=== PATIENT | female | born 1945 | race Caucasian/White ===

== ENCOUNTER 2018-04-24 11:02 | Inpatient (IN) ==
[2018-04-24] MEDS ORDERED: DUONEB (A & A) INH ONE (11:09)
[2018-04-24 11:29] LABS: BE 4.5 mmoll (-3.0-3.0); BLOOD TYPE ARTERIAL; HCO3-(ACT) 28.2 mmoll (20.0-26.0); METHB 1.1 % (0.0-1.5); PO2(98.6) 72 mmHg (60-100); SAMPLE BLOOD; SAO2 96.2 % (95.0-100.0); THB 13.6 g/dL (11.5-17.4); pH(98.6) 7.32 (7.35-7.45)
[2018-04-24 11:34] LABS: ALLEN TEST YES; MODALITY CANNULA
[2018-04-24 11:36] LABS: PCO2(98.6) 63 mmHg (35-45)
[2018-04-24 11:37] LABS: O2HB 88.8 % (95.0-99.0)
[2018-04-24 12:07] LABS: BASO# 0.03 X1000 (0.0-0.2); BASO% 0.3 % (0.0-0.8); EOS# 0.01 X1000 (0.0-0.7); EOS% 0.1 % (0.0-10.0); HEMATOCRIT 42.7 % (37.0-47.0); HEMOGLOBIN 12.7 g/dL (12.0-16.0); IMM GRAN# 0.04 X1000 (0.0-0.04); IMM GRAN% 0.4 % (0.0-0.5); LYMPH# 0.39 X1000 (1.2-3.4); LYMPH% 3.4 % (20.5-51.1); MCH 26.5 PG (27-31); MCHC 29.7 g/dL (33-37); MONO# 0.28 X1000 (0.11-0.59); MONO% 2.5 % (1.7-9.3); MPV 13.1 FL (7.4-10.4); NEUT# 10.65 X1000 (1.4-6.5); NEUT% 93.3 % (42.2-75.2); PLT 190 X1000 (130-400); RDW 16.2 % (11.5-14.5)
[2018-04-24 12:09] LABS: AGAP 10; ALBUMIN 3.7 g/dL (3.5-5.0); ALKALINE PHOSPHATASE 105 U/L (32-104); BUN 11 mg/dL (8-22); CHLORIDE 98 mmol/L (98-107); COSMO 280; CREATININE 0.8 mg/dL (0.5-0.9); ESTIMATED GFR > 60; GLUCOSE 148 mg/dL (70-104); GOT 13 U/L (10-30); GPT 13 U/L (10-36); POTASSIUM 3.9 mmol/L (3.5-5.1); SODIUM 139 mmol/L (136-145); TCO2 31 mmol/L (25-35); TOTAL PROTEIN 7.1 g/dL (6.3-8.3)
--- NOTE | 2018-04-24 12:13 | Diag Imaging Result Doc PS360 ---
EXAM: CHEST-2 VIEWS HISTORY: cough TECHNIQUE: Chest two views 04/08/2014 COMPARISON: None. FINDINGS: The lungs are well expanded. The heart is not enlarged. The vessels are not distended. There are mild increased interstitial markings in the lower right lung no pleural effusions. IMPRESSION: Small right infiltrate which appears to the lateral segment of the right middle lobe. Electronically signed by Pk Bear 04/24/2018 12:10 PM
[2018-04-24 12:20] LABS: LYMPHS 3 % (21-51); MONO 3 % (1-9); SEGS 94 % (42-75)
[2018-04-24] MEDS ORDERED: ROCEPHIN 1 GM in NS 50 ML IV ONE (13:02)
--- NOTE | 2018-04-24 13:23 | EKG Report ---
Test Performed on : 04/24/2018 11:09:57 AM Test Reason : shortness of breath Blood Pressure : / mmHG Vent. Rate : 099 BPM Atrial Rate : 099 BPM P-R Int : 176 ms QRS Dur : 102 ms QT Int : 350 ms P-R-T Axes : 078 076 026 degrees QTc Int : 449 ms Sinus rhythm. with premature supraventricular complexes. Nonspecific ST abnormality Abnormal ECG When compared with ECG of 06-NOV-2011 19:35, premature supraventricular complexes. are now present Nonspecific T wave abnormality, improved in Anterolateral leads Unconfirmed Result
--- NOTE | 2018-04-24 13:29 | PROVIDER DOCUMENTATION ---
This chart was entered by Kiersten Diaz Scribe, acting as scribe for Ralph Myers MD. HPI-Respiratory General - General Chief Complaint: Shortness of Breath Stated Complaint: COPD Time Seen by Provider: 04/24/18 11:07 Source: patient, EMS (first response) Allergies/Adverse Reactions: Patient Allergies Allergy/AdvReac Type Severity Reaction Status Date / Time codeine Allergy RASH Verified 04/24/18 11:08 Home Medications: Home Medication List Medication Instructions Recorded Confirmed Last Taken Type Albuterol [Albuterol Neb] 2.5 mg INH Q4H PRN PRN 06/06/13 09/07/17 Unknown History Atorvastatin Calcium [Lipitor] 20 mg PO DAILY 06/06/13 09/07/17 04/07/14 History Haloperidol [Haldol] 10 mg PO DAILY 06/06/13 09/07/17 04/07/14 History Lorazepam [Ativan] 1 mg PO DAILY #14 tablet 05/22/15 09/07/17 Unknown Rx Quetiapine Fumarate [Seroquel] 25 mg PO BID #28 tablet 05/22/15 09/07/17 Unknown Rx Fluticasone/Salmeterol [Advair 1 puff INH PRN PRN 07/23/15 09/07/17 Unknown History 250-50 Diskus] Ibuprofen [Motrin] 800 mg PO Q8H PRN PRN #20 tablet 07/23/15 09/07/17 Unknown Rx Omeprazole [Prilosec] 20 mg PO DAILY@0700 #20 capsule 07/23/15 Unknown Rx Naproxen [EC-Naprosyn] 500 mg PO Q12H PRN PRN #20 10/03/15 Unknown Rx tablet.dr - History of Present Illness-Resp Nature of Presenting Problem: 73 yowf presents to the ed with c/o sob, productive cough with white sputum and still smoking. per ems when aos pt was 80% on RA Quality of Pain: reports: fullness Severity in ED: reports: moderate Onset/Duration: reports: 24 hours ago Timing: reports: still present Context: reports: recent URI Cough Quality/Degree: reports: productive cough, sputum (white and thick in color) Episode Frequency: chronic episodes Current Respiratory Medication Therapy: Initiated see nurses note Modifying Factors: improves with: oxygen, sitting upright. worse with: exertion , coughing, lying down Associated Symptoms: reports: cough, hurts to breathe, shortness of breath Similar Symptoms Previously?: Yes Recently seen or treated by another doctor?: No Review of Systems - Adult - REVIEW OF SYSTEMS - ADULT ROS:: limited per condition Constitutional: denies: chills, fever Eyes: reports: no symptoms reported Ears, Nose, Mouth & Throat: reports: no symptoms reported Cardiovascular: denies: chest pain, syncope Respiratory: reports: see HPI, chronic cough, dyspnea on exertion, excessive sputum production, shortness of breath Gastrointestinal: denies: abdominal pain, diarrhea, nausea, vomiting Genitourinary: reports: no symptoms reported Musculoskeletal: reports: no symptoms reported Integumentary: reports: no symptoms reported Neurological: denies: dizziness/vertigo, headache/migraines Psychiatric: reports: no symptoms reported Endocrine: reports: no symptoms reported Hematologic/Lymphatic: reports: no symptoms reported Allergic/Immunologic: reports: no symptoms reported All Other Systems: Reviewed and Negative Past History - Adult - PAST MEDICAL HISTORY-ADULT Review of Records: reports: Old Records Reviewed, Nursing Assessment Review, Medications Reviewed, Social history reviewed & non-contributory. Major Childhood Illnesses: reports: denies history Cardiovascular: reports: hyperlipidemia Respiratory: reports: asthma, COPD, sleep apnea Gastrointestinal: reports: denies history Obstetrical/Gynecological: reports: denies history Genitourinary: reports: denies history Musculoskeletal: reports: denies history Neurological: reports: CVA Psychiatric: reports: bipolar Endocrine/Immune: reports: denies history Other Conditions: reports: cataract/glaucoma - PRIOR SURGERIES/PROCEDURES Surgical/Procedure History: reports: reviewed, not pertinent - IMMUNIZATION STATUS Childhood Immunizations: See Nurse Assessment Flu Vaccine: See Nurse Assessment - FAMILY HISTORY Family History: reviewed, not pertinent - SOCIAL HISTORY Smoking: cigarettes, greater than 1 pack/day Provider spent 3-5 mins advising pt. on dangers of tobacco.: Discussed manners to quit use, and f/u contacts for add'l counseling. Substance Use: denies Alcohol Use Frequency: never Living Situation: family Physical Exam-General - PHYSICAL EXAM-ADULT Initial Vital Signs Reviewed: Yes (100.1 RR 35 tachy 110) - CONSTITUTIONAL General Appearance: alert, mild distress, obese, anxious - EYES Eyes: PERRL/EOMI, pale conjunctivae - HEAD, EARS, NOSE, MOUTH & THROAT HENMT: dental decay. negative: moist mucous membranes - NECK Neck: full range of motion, normal inspection - RESPIRATORY Respiratory: chest non-tender, respiratory distress, decreased breath sounds, accessory muscle use, wheezing, increased rate (35) - CARDIOVASCULAR Cardiovascular: normal peripheral pulses, tachycardia (110) - GASTROINTESTINAL (ABDOMEN) Abdominal Exam: normal bowel sounds, non tender, soft - LYMPHATIC Lymphatic: no adenopathy - MUSCULOSKELETAL Back Exam: normal inspection, no CVA tenderness, no vertebral tenderness Extremity: normal range of motion, non-tender, normal inspection, no pedal edema , no calf tenderness - SKIN Integumentary: normal turgor, warm/dry, pallor - NEUROLOGIC Neurologic: grossly normal, no motor/sensory deficits - PSYCHIATRIC Psych/Mental Status: normal mood/affect, normal thought content, normal thought process, oriented x 3, anxious Progress - PLAN OF CARE/RESULTS Progress/Plan/Lab Results: Vital Signs - 8 hr 04/24/18 11:04 04/24/18 11:16 04/24/18 11:29 Temperature 100.1 F H Pulse Rate 110 H 88 Respiratory Rate 20 35 H Blood Pressure 128/96 O2 Sat by Pulse Oximetry 97 04/24/18 11:30 04/24/18 11:46 04/24/18 11:54 Temperature Pulse Rate 88 80 84 Respiratory Rate 24 39 H Blood Pressure 132/55 132/55 O2 Sat by Pulse Oximetry 92 L 97 96 04/24/18 12:44 Temperature Pulse Rate 89 Respiratory Rate 39 H Blood Pressure 126/58 O2 Sat by Pulse Oximetry 95 04/24/18 11:10 - Final Sputum Laboratory Results - last 24 hr 04/24/18 04/24/18 04/24/18 11:19 11:20 11:20 WBC 11.40 H RBC 4.80 Hgb 12.7 Hct 42.7 MCV 89.0 MCH 26.5 L MCHC 29.7 L RDW Std Deviation 16.2 H Plt Count 190 MPV 13.1 H Immature Gran % (Auto) 0.4 Neut % (Auto) 93.3 H Lymph % (Auto) 3.4 L Josephine % (Auto) 2.5 Eos % (Auto) 0.1 Baso % (Auto) 0.3 Immature Gran # (Auto) 0.04 Neut # (Auto) 10.65 H Lymph # (Auto) 0.39 L Josephine # (Auto) 0.28 Eos # (Auto) 0.01 Baso # (Auto) 0.03 Segmented Neutrophils 94 H Lymphocytes 3 L Monocytes 3 Specimen Type ARTERIAL Sample Site R RADIAL pH 7.32 L pCO2 63 H* pO2 72 HCO3 28.2 H Base Excess 4.5 H Oxyhemoglobin 88.8 L* ABG O2 Sat (Calculated) 17.0 ABG O2 Saturation 96.2 ABG Carboxyhemoglobin 6.60 H* ABG Methemoglobin 1.1 Km Test YES A-a O2 Difference 77.0 Total Hemoglobin 13.6 Lactate 0.90 Liter Flow 3.0 Blood Gas Modality CANNULA FiO2 % 32.0 Sodium 139 Potassium 3.9 Chloride 98 Carbon Dioxide 31 Anion Gap 10 BUN 11 Creatinine 0.8 Estimated GFR/1.73 m2 > 60 BUN/Creatinine Ratio 14 Glucose 148 H Calculated Osmolality 280 Calcium 9.0 Total Bilirubin 0.40 AST 13 ALT 13 Alkaline Phosphatase 105 H Creatine Kinase Troponin T Total Protein 7.1 Albumin 3.7 Globulin 3.0 Albumin/Globulin Ratio 1.0 Plasma Lactate 04/24/18 04/24/18 04/24/18 11:20 11:20 11:20 WBC RBC Hgb Hct MCV MCH MCHC RDW Std Deviation Plt Count MPV Immature Gran % (Auto) Neut % (Auto) Lymph % (Auto) Josephine % (Auto) Eos % (Auto) Baso % (Auto) Immature Gran # (Auto) Neut # (Auto) Lymph # (Auto) Josephine # (Auto) Eos # (Auto) Baso # (Auto) Segmented Neutrophils Lymphocytes Monocytes Specimen Type Sample Site pH pCO2 pO2 HCO3 Base Excess Oxyhemoglobin ABG O2 Sat (Calculated) ABG O2 Saturation ABG Carboxyhemoglobin ABG Methemoglobin Km Test A-a O2 Difference Total Hemoglobin Lactate Liter Flow Blood Gas Modality FiO2 % Sodium Potassium Chloride Carbon Dioxide Anion Gap BUN Creatinine Estimated GFR/1.73 m2 BUN/Creatinine Ratio Glucose Calculated Osmolality Calcium Total Bilirubin AST ALT Alkaline Phosphatase Creatine Kinase 107 Troponin T < 0.010 Total Protein Albumin Globulin Albumin/Globulin Ratio Plasma Lactate 1.2 Orders Category Date Time Status Saline Loc NOW Care 04/24/18 11:10 Active CHEST-2 VIEWS [RAD] Stat Exams 04/24/18 11:10 Completed ABG [RESP] Routine Lab 04/24/18 11:19 Completed BLOOD CULTURE [BLDCUL] Stat Lab 04/24/18 11:10 Ordered CBC WITH DIFF [HEME] Stat Lab 04/24/18 11:20 Completed CK PROFILE [SP CHEM] Stat Lab 04/24/18 11:20 Completed COMPREHENSIVE METABOLIC PANEL [CHEM] Stat Lab 04/24/18 11:20 Completed LACTATE, PLASMA [CHEM] Stat Lab 04/24/18 11:20 Completed SPUTUM CULTURE WITH GRAM STAIN [RM] Routine Lab 04/24/18 11:10 Results TROPONIN T Stat Lab 04/24/18 11:20 Completed Albuterol 2.5MG/Ipratrop 0.5MG [Duoneb (A & A)] Med 04/24/18 11:09 Discontinued 3 ml INH NOW ONE CefTRIAXONE [Rocephin] 1 gm Med 04/24/18 13:02 Active 0.9% Sodium Chloride Inj [Ns] 50 ml IV NOW Aerosol Treatments Routine Oth 04/24/18 11:10 Completed Aerosol Treatments Stat Oth 04/24/18 11:10 Completed Pulse Oximetry Stat Oth 04/24/18 11:10 Active EKG [EKG] Stat Ther 04/24/18 12:01 Draft Result Diagrams: 04/24/18 11:20 04/24/18 11:20 - REASSESSMENT Reassessment #1 Time Reassessed: 11:43 (pt imoproving with neb tx) Status: improving Reassessment Comment: dr meyrs at bedside Reassessment #2 Time Reassessed: 13:23 Status: improving - EKG 1 Time of EKG reading by physician:: 11:09 EKG Read and Signed by:: Ralph Myers EKG Interpretation (*Must complete 3 of following elements*): Abnormal Rate: 99 Rhythm: sr with preamture supraventricular complexes [place]: normal QRS: normal [place] Interval: normal Comments: nonspecfic ST abnormality - XRAY 1 XRAY: Bilateral XRAY Study: Chest Impression: See EMR Report (EXAM: CHEST-2 VIEWS HISTORY: cough TECHNIQUE: Chest two views 04/08/2014 COMPARISON: None. FINDINGS: The lungs are well expanded. The heart is not enlarged. The vessels are not distended. There are mild increased interstitial markings in the lower right lung no pleural effusions. IMPRESSION: Small right infiltrate which appears to the lateral segment of the right middle lobe. Electronically signed by Pk Bear 2018 12:10 PM 04/24/18 1210 Interpreting Physician: Pk Bear MD Dictated Date/Time: 04/24/18 1210 cc: Ralph Myers MD; Kenneth Nuñez) - CONSULTS/PCP/HOSPITALIST Notification #1 *Consult/PCP/Hospitalist*: dr giron hospitalist Time Discussed: 13:23 Consult Disposition: Admit Departure - Departure Date of Disposition Decision: 04/24/18 Time of Disposition Decision: 13:23 DIAGNOSIS: COPD exacerbation, Tobacco use disorder Disposition: ADMITTED INPATIENT 09 Certified Medical Emergency: Emergent Condition: Stable Referrals and Follow-Ups: Kenneth Nuñez [Primary Care Provider] - - Critical Care Note This patient required my direct & personal management of CC.: Yes Total Time (mins): 39 Critical Care Statement: This patient required my direct personal management to treat or rule out processes, the absence of which, could potentiallly result in sudden, clinically significant life or limb threatening deterioration. Attestation - Physician/ PHU Attestation Patient care was provided by Advanced Practice Provider:: No The physician spent face to face time with patient:: Yes Advanced Practice Provider documentation review:: Supervising physician onsite and consulted in the evaluation and care of this patient. The physician did have a face to face encounter with the patient. Sepsis: Tissue Perfusion Assmt - Physical Exam Assessment Date: 04/24/18 Time Assessment Initialized: 11:42 Vital Signs: Last Vital Signs Temp 100.1 F H 04/24/18 11:16 Pulse 89 04/24/18 12:44 Resp 39 H 04/24/18 12:44 BP 126/58 04/24/18 12:44 Pulse Ox 95 04/24/18 12:44 Height 5 ft 6 in Weight 83.915 kg Lung Sounds:: wheezing, diminished Heart Sounds:: Other (tachycardic 110) Capillary Refill Time: Less Than 2 Seconds Skin Exam:: pale - Impression Impression:: Tissue Perfusion Adequate - Plan Plan:: See Orders This chart was documented by the indicated scribe, (Kiersten Diaz Scribe) and accurately reflects the services I performed and decisions made by me, Ralph Myers MD, as attested by the provider's signature.
[2018-04-24] MEDS ORDERED: DUONEB (A & A) INH PRN (15:29)
[2018-04-24] MEDS ORDERED: TYLENOL PO PRN (15:29)
[2018-04-24] MEDS ORDERED: ZOFRAN IV PRN (15:29)
[2018-04-24] MEDS ORDERED: DUONEB (A & A) ONE (15:38)
[2018-04-24] MEDS: DUONEB (A & A) INH SCH ×3 (15:54→23:19)
--- NOTE | 2018-04-24 17:16 | HISTORY AND PHYSICAL ---
PRIMARY CARE PROVIDER: Dr. Kenneth Nuñez. CHIEF COMPLAINT: Shortness of breath. HISTORY OF PRESENT ILLNESS: Ms. Zelaya is a 73-year-old female who carries a past medical history of COPD, chronic tobacco user, CVA, bipolar disorder, hyperlipidemia, who reported to the ED with 1-day history of shortness of breath, productive cough ongoing for 1 month with wheezing, frequent urination but no dysuria, fever of 100. Denies any chest pain, headache, chills, nausea, vomiting, diarrhea. Workup in the ED showed hypercarbia on her ABGs. She was placed on supplemental O2, given a breathing treatment. She does have a slight elevated white count. Temperature was 100.1 degrees upon arrival. She was tachypneic. Lactate was normal. She will be admitted for COPD exacerbation and probable right lower lobe pneumonia. Continue with bronchodilators, supplemental O2, IV steroids, and IV antibiotics. PAST MEDICAL HISTORY: 1. COPD. 2. Tobacco use. 3. CVA. 4. Bipolar. 5. Hyperlipidemia. PAST SURGICAL HISTORY: Breast biopsy. SOCIAL HISTORY: Patient lives in [place]. She lives alone. She is a smoker of 1 to 2 packs per day and has done so since she was 19 years old. FAMILY HISTORY: Father with heart issues. ALLERGIES: Allergy to codeine. MEDICATIONS: Home medications have not been reconciled. REVIEW OF SYSTEMS: A 14 point review of systems completely negative except for those mentioned in HPI. PHYSICAL EXAMINATION: VITAL SIGNS: Temperature is 98.3 degrees, heart rate 91, respirations 26, blood pressure 139/68, O2 is 95% on 2.5 L nasal cannula. This was weaned down from a Ventimask. GENERAL: Ms. Zelaya is a pleasant 73-year-old female who is lying on the stretcher in no acute distress, somewhat short of breath with coughing spell while at bedside. HEENT: Atraumatic, normocephalic. PERRL. Dental caries. CARDIOVASCULAR: S1, S2 appreciated. No murmurs, gallops, or rubs noted. RESPIRATORY: Lung sounds bilateral rhonchi throughout all lung moore. GASTROINTESTINAL: Soft, nontender, nondistended. Positive bowel sounds x4 quadrants. EXTREMITIES: Negative for edema. No signs of clubbing or cyanosis. SKIN: Appears to be warm dry flaky and intact. NEUROLOGIC: No focal deficits noted. The patient answers questions appropriately. DIAGNOSTIC DATA: Chest x-ray shows a small right infiltrate which appears to be the lateral segment of the right lower lobe. EKG shows sinus rhythm at 99 beats per minute. LABORATORY DATA: White count 11, hemoglobin and hematocrit 12 and 42, platelet count is 190,000. ABG: pH 7.32, pCO2 63, pO2 72, bicarb 28.2, base excess 4.5. Oxyhemoglobin was 88.8. Lactate was 0.90 on 3 L nasal cannula. Chemistry: Sodium 139, potassium 3.9, BUN 11, creatinine 0.8, blood glucose is 148. Troponin less than 0.010. ASSESSMENT AND PLAN: 1. Chronic obstructive pulmonary disease exacerbation. We will continue with supplemental O2, IV antibiotics, bronchodilators, IV steroids, supplemental O2, aggressive pulmonary toilet. 2. Questionable right infiltrate. We will continue with IV antibiotics, bronchodilators, supplemental O2, check sputum culture, blood cultures. 3. Acute hypercarbic respiratory failure. Patient reportedly is breathing better with supplemental O2. We will recheck ABG. 4. Chronic obstructive pulmonary disease exacerbation. 5. Cerebrovascular accident history. 6. Bipolar disorder. 7. Hyperlipidemia. Further recommendations to follow further evaluation, laboratory, and diagnostic data. Dictated by GLADIS Borrego for Mauricio Hdz MD cc: Mauricio Hdz MD
[2018-04-24] MEDS: NS 1,000 ML IV SCH (17:19)
[2018-04-24] MEDS: SOLU-MEDROL IV SCH (17:19)
[2018-04-24] MEDS: LIPITOR PO SCH (21:41)
[2018-04-24] MEDS: SEROQUEL PO SCH (21:42)
--- NOTE | 2018-04-24 23:49 | HISTORY AND PHYSICAL ---
ADDENDUM: Patient came in with shortness of breath and cough and she was found to have a white count of 11. She has wheezing on exam. She is somewhat hypercapnic. She does have a significant smoking history. She came in for fever, shortness of breath. Admitted for COPD exacerbation. On pulmonary exam, she does have some end-expiratory wheezes. We will continue treatment and follow closely. PROBLEM: Chronic obstructive pulmonary disease exacerbation. We will continue oxygen, bronchodilators, steroids. We will continue empiric antibiotics and follow closely. DISPOSITION: Pending clinical status. This is a [id number] encounter note with Estella Kothari. cc: Mauricio Hdz MD
[2018-04-25] MEDS: DUONEB (A & A) INH SCH ×7 (03:26→23:26)
[2018-04-25 04:59] LABS: BLOOD TYPE ARTERIAL; HCO3-(ACT) 28.7 mmoll (20.0-26.0); O2(CT) 16.3 mL/dL (15.0-23.0); O2HB 90.6 % (95.0-99.0); PO2(98.6) 65 mmHg (60-100); SAMPLE BLOOD; SAO2 94.6 % (95.0-100.0); THB 12.8 g/dL (11.5-17.4); pH(98.6) 7.24 (7.35-7.45)
[2018-04-25 05:02] LABS: PCO2(98.6) 82 mmHg (35-45)
[2018-04-25 05:03] LABS: ALLEN TEST YES
[2018-04-25 06:08] LABS: MODALITY CANNULA
[2018-04-25] MEDS: PROTONIX PO SCH (06:50)
[2018-04-25] MEDS: SOLU-MEDROL IV SCH ×2 (07:06→17:13)
--- NOTE | 2018-04-25 07:19 | Diag Imaging Result Doc PS360 ---
EXAM: CHEST-PORTABLE 04/25/2018 HISTORY: short of breath TECHNIQUE: AP portable at 0629 COMMENT: Considering differences in inspiration and technique there has been no significant change since 04/24/2018. IMPRESSION: Stable chest. Electronically signed by Ozzy Ramirez 04/25/2018 7:16 AM
[2018-04-25 07:50] LABS: BASO# 0.01 X1000 (0.0-0.2); BASO% 0.1 % (0.0-0.8); HEMATOCRIT 44.5 % (37.0-47.0); HEMOGLOBIN 12.6 g/dL (12.0-16.0); IMM GRAN# 0.03 X1000 (0.0-0.04); IMM GRAN% 0.4 % (0.0-0.5); LYMPH# 0.44 X1000 (1.2-3.4); LYMPH% 6.5 % (20.5-51.1); MCH 25.8 PG (27-31); MCHC 28.3 g/dL (33-37); MCV 91.2 FL (81-99); MONO# 0.29 X1000 (0.11-0.59); MONO% 4.3 % (1.7-9.3); MPV 13.1 FL (7.4-10.4); NEUT# 5.96 X1000 (1.4-6.5); NEUT% 88.7 % (42.2-75.2); PLT 170 X1000 (130-400); RBC 4.88 XMIL (4.2-5.4); RDW 16.3 % (11.5-14.5); WBC 6.73 X1000 (4.8-10.8)
[2018-04-25 08:06] LABS: AGAP 9; BUN 9 mg/dL (8-22); CALCIUM 9.2 mg/dL (8.8-10.2); CHLORIDE 102 mmol/L (98-107); COSMO 287; CREATININE 0.7 mg/dL (0.5-0.9); ESTIMATED GFR > 60; GLUCOSE 122 mg/dL (70-104); POTASSIUM 4.7 mmol/L (3.5-5.1); SODIUM 144 mmol/L (136-145); TCO2 33 mmol/L (25-35)
[2018-04-25] MEDS ORDERED: ATIVAN PO SCH (09:00)
[2018-04-25] MEDS ORDERED: HALDOL PO SCH (09:00)
[2018-04-25 09:28] LABS: LYMPHS 10 % (21-51); MONO 4 % (1-9); SEGS 86 % (42-75)
[2018-04-25] MEDS: LOVENOX SUBQ SCH ×2 (09:59→10:01)
[2018-04-25] MEDS: SEROQUEL PO SCH ×3 (10:02→23:36)
[2018-04-25] MEDS: NS 1,000 ML IV SCH ×2 (10:03→23:35)
[2018-04-25] MEDS ORDERED: VANCOMYCIN IV PER PHARMACY MISC SCH (10:30)
[2018-04-25] MEDS: ROCEPHIN 1 GM in NS 50 ML IV SCH (13:02)
[2018-04-25] MEDS ORDERED: VANCOMYCIN 1,650 MG in NS 250 ML IV ONE (13:15)
[2018-04-25] MEDS ORDERED: KLONOPIN PO PRN (17:34)
[2018-04-25] MEDS: LIPITOR PO SCH (23:35)
[2018-04-25] MEDS: HALDOL PO SCH (23:35)
[2018-04-26 00:49] LABS: BILIRUBIN URINE NEGATIVE (NEGATIVE); GLUCOSE URINE NEGATIVE (NEGATIVE); KETONE URINE NEGATIVE (NEGATIVE)
[2018-04-26 00:50] LABS: BLOOD URINE NEGATIVE (NEGATIVE); CLARITY CLEAR (CLEAR); COLOR YELLOW; LEUKOCYTES URINE TRACE (NEGATIVE); NITRITE URINE NEGATIVE (NEGATIVE); PROTEIN URINE TRACE mg/dL (NEGATIVE); UROBILINOGEN URINE NORMAL
[2018-04-26 00:52] LABS: URINE BACTERIA 4+ /HFP; URINE EPITHELIAL CELLS <10 /HPF (<10); URINE RBC <10 /HPF (<10); URINE WBC <10 /HPF (<10)
[2018-04-26 00:53] LABS: URINE SOURCE CLEAN CATCH
--- NOTE | 2018-04-26 00:59 | PROGRESS NOTE ---
DATE: 04/25/2018 SUBJECTIVE: The patient has no major complaints. She says she just does not feel well. She is breathing heavily, although not wheezing per se, but she is kind of going up and down. She just seems a little bit more labored today, although again, not wheezing. OBJECTIVE DATA: Vital Signs: Blood pressure is 144/60, heart rate of 90, respiratory rate of 20, temperature 98.3 degrees, 93% on 4 L. Cardiovascular: Regular rate and rhythm. Pulmonary: Diminished at the bases. GI: Soft, nontender, nondistended. Bowel sounds were positive. LABORATORY DATA: White count is down to 6, hemoglobin and hematocrit 12 and 44, platelets 170,000. pH 7.24, pCO2 82, PaO2 65. Basic was normal. Chest x-ray today looked similar. PROBLEM LIST: 1. Acute chronic obstructive pulmonary disease exacerbation. We will continue breathing treatments. I am going to knock down her steroids. I am concerned that may be causing some of her agitation. We may give her a little bit of p.r.n. medications to help with her symptoms. 2. Possible right lower lobe pneumonia. We will continue antibiotics. She is currently on Rocephin and azithromycin. She had one positive blood culture, so we initiated vancomycin. 3. Disposition is pending her clinical status. We will see how she does. 4. Hypercapnic respiratory failure. I think she may benefit from BiPAP. We will try to institute that this evening, and see how she follows. cc: Mauricio Hdz MD
[2018-04-26] MEDS: DUONEB (A & A) INH SCH ×6 (03:40→22:45)
[2018-04-26] MEDS: SOLU-MEDROL IV SCH ×2 (06:35→17:12)
[2018-04-26] MEDS: PROTONIX PO SCH (06:36)
[2018-04-26 07:30] LABS: AGAP 5; BUN 13 mg/dL (8-22); CALCIUM 8.6 mg/dL (8.8-10.2); CHLORIDE 104 mmol/L (98-107); COSMO 284; CREATININE 0.5 mg/dL (0.5-0.9); ESTIMATED GFR > 60; GLUCOSE 109 mg/dL (70-104); POTASSIUM 4.5 mmol/L (3.5-5.1); SODIUM 142 mmol/L (136-145); TCO2 33 mmol/L (25-35)
[2018-04-26 07:40] LABS: BASO# 0.01 X1000 (0.0-0.2); BASO% 0.2 % (0.0-0.8); HEMATOCRIT 37.6 % (37.0-47.0); HEMOGLOBIN 10.5 g/dL (12.0-16.0); IMM GRAN# 0.01 X1000 (0.0-0.04); IMM GRAN% 0.2 % (0.0-0.5); LYMPH# 0.51 X1000 (1.2-3.4); LYMPH% 9.5 % (20.5-51.1); MCH 25.6 PG (27-31); MCHC 27.9 g/dL (33-37); MCV 91.7 FL (81-99); MONO# 0.17 X1000 (0.11-0.59); MONO% 3.2 % (1.7-9.3); MPV 13.1 FL (7.4-10.4); NEUT# 4.65 X1000 (1.4-6.5); NEUT% 86.9 % (42.2-75.2); PLT 146 X1000 (130-400); RDW 15.9 % (11.5-14.5); WBC 5.35 X1000 (4.8-10.8)
[2018-04-26 08:11] LABS: LYMPHS 10 % (21-51); OVALOCYTES OCCASIONAL; POIKILOCYTOSIS OCCASIONAL; SEGS 90 % (42-75)
[2018-04-26] MEDS: LOVENOX SUBQ SCH (10:07)
[2018-04-26] MEDS: SEROQUEL PO SCH ×3 (10:07→20:47)
[2018-04-26] MEDS ORDERED: TEARISOL OPH SOLUTION BOTH EYES PRN (11:48)
[2018-04-26] MEDS: NICODERM PATCH TD SCH (13:17)
[2018-04-26] MEDS: ROCEPHIN 1 GM in NS 50 ML IV SCH (13:17)
[2018-04-26 18:05] LABS: BE 11.9 mmoll (-3.0-3.0); BLOOD TYPE ARTERIAL; HCO3-(ACT) 34.1 mmoll (20.0-26.0); METHB 0.9 % (0.0-1.5); O2(CT) 15.4 mL/dL (15.0-23.0); O2HB 92.7 % (95.0-99.0); PO2(98.6) 59 mmHg (60-100); SAMPLE BLOOD; SAO2 95.2 % (95.0-100.0); THB 11.8 g/dL (11.5-17.4); pH(98.6) 7.38 (7.35-7.45)
[2018-04-26 18:14] LABS: ALLEN TEST NO; MODALITY CANNULA; PCO2(98.6) 67 mmHg (35-45)
--- NOTE | 2018-04-26 18:18 | PROGRESS NOTE ---
DATE: 04/26/2018 SUBJECTIVE: Patient has no focal complaints. OBJECTIVE: Blood pressure is 101/60, heart rate of 90, respiratory rate of 24, temperature 98.6 degrees, 98% on 4 L.Cardiovascular: Regular rate and rhythm. Pulmonary: Bilateral breath sounds but she has more wheezing today than she did yesterday. Her lungs sounded pretty clear yesterday and they do not now. She definitely has end-expiratory wheezes. GI: Soft, nontender, nondistended. Bowel sounds were positive. LABORATORY DATA: White count 5, hemoglobin and hematocrit 10 and 37, platelets 146,000. Basic was normal. PROBLEM LIST: 1. Acute chronic obstructive pulmonary disease exacerbation. Will continue breathing treatments. I am going to go up on her steroids, I weaned them down yesterday, she was doing a bit better and was worried it was affecting her mental status underlying psychiatric issues but I may have weaned them a bit too soon because I think she needs more treatment. 2. Right lower lobe pneumonia, she is on antibiotics Rocephin, azithromycin, the coag-negative staph 1/2 is likely contaminant. I will stop vancomycin. 3. Hypercapnic respiratory failure. I am waiting on her repeat gas. We will continue BiPAP which she has done okay. DISPOSITION: Maybe home in 1 to 2 days. She is very eager to go home but I do not think she is stable enough for that at this time. cc: Mauricio Hdz MD
[2018-04-26] MEDS ORDERED: VANCOMYCIN 1,300 MG in NS 250 ML IV SCH (19:30)
[2018-04-26] MEDS: HALDOL PO SCH (20:47)
[2018-04-26] MEDS: LIPITOR PO SCH (20:47)
[2018-04-27] MEDS ORDERED: SOLU-MEDROL IV SCH (01:00)
[2018-04-27] MEDS: DUONEB (A & A) INH SCH ×6 (03:15→22:59)
[2018-04-27] MEDS: PROTONIX PO SCH ×2 (05:35→06:38)
[2018-04-27 07:25] LABS: HEMATOCRIT 38.9 % (37.0-47.0); IMM GRAN# 0.01 X1000 (0.0-0.04); IMM GRAN% 0.2 % (0.0-0.5); LYMPH# 0.26 X1000 (1.2-3.4); MCH 25.9 PG (27-31); MCHC 28.3 g/dL (33-37); MCV 91.7 FL (81-99); MONO# 0.07 X1000 (0.11-0.59); MONO% 1.3 % (1.7-9.3); MPV 13.3 FL (7.4-10.4); NEUT# 4.89 X1000 (1.4-6.5); NEUT% 93.5 % (42.2-75.2); PLT 145 X1000 (130-400); RBC 4.24 XMIL (4.2-5.4); RDW 15.7 % (11.5-14.5); WBC 5.23 X1000 (4.8-10.8)
[2018-04-27 07:34] LABS: AGAP 7; BUN 16 mg/dL (8-22); CALCIUM 9.2 mg/dL (8.8-10.2); CHLORIDE 102 mmol/L (98-107); COSMO 293; CREATININE 0.6 mg/dL (0.5-0.9); ESTIMATED GFR > 60; GLUCOSE 162 mg/dL (70-104); POTASSIUM 4.7 mmol/L (3.5-5.1); SODIUM 145 mmol/L (136-145); TCO2 36 mmol/L (25-35)
[2018-04-27] MEDS: SOLU-MEDROL IV SCH ×2 (09:11→16:30)
[2018-04-27] MEDS: SEROQUEL PO SCH ×3 (09:11→20:28)
[2018-04-27] MEDS: LOVENOX SUBQ SCH ×2 (09:11→09:13)
[2018-04-27] MEDS: NICODERM PATCH TD SCH (09:12)
[2018-04-27 10:20] LABS: LYMPHS 6 % (21-51); SEGS 94 % (42-75)
[2018-04-27] MEDS: ROCEPHIN 1 GM in NS 50 ML IV SCH (12:56)
[2018-04-27] MEDS: HALDOL PO SCH (20:28)
[2018-04-27] MEDS: LIPITOR PO SCH (20:28)
--- NOTE | 2018-04-27 23:08 | PROGRESS NOTE ---
DATE: 04/27/2018 SUBJECTIVE: Patient notes that she is feeling better she was to go home. Denies any complaints states her breathing is better. PHYSICAL: Temperature 98.1 , pulse 71, respiratory 18, BP .General: Patient is awake, alert, she is in minimal respiratory distress actually much improved from previous day 's exams. HEENT: Normocephalic. Neck: Supple. CV: Regular rate. Chest: Minimal wheezing, good air movement bilaterally. Abdomen: Soft nondistended. Extremities: Moves all extremities. ASSESSMENT: 1. Chronic obstructive pulmonary disease exacerbation continue to improve. We will decrease her Solu-Medrol at this point hopefully home over the next 2 or 3 days. 2. Right lower lobe pneumonia continues to improve, will continue Rocephin and azithromycin. 3. Hypercapnic respiratory failure also improved. cc: Kd Pena MD MTDD
[2018-04-28] MEDS: SOLU-MEDROL IV SCH ×3 (00:29→18:56)
[2018-04-28] MEDS: DUONEB (A & A) INH SCH ×6 (03:31→23:10)
[2018-04-28] MEDS: PROTONIX PO SCH ×2 (05:49→06:13)
[2018-04-28 06:06] LABS: HEMATOCRIT 40.4 % (37.0-47.0); HEMOGLOBIN 11.5 g/dL (12.0-16.0); MCH 25.8 PG (27-31); MCHC 28.5 g/dL (33-37); MCV 90.8 FL (81-99); MPV 13.1 FL (7.4-10.4); RBC 4.45 XMIL (4.2-5.4); RDW 15.6 % (11.5-14.5); WBC 5.94 X1000 (4.8-10.8)
[2018-04-28 06:19] LABS: AGAP 4; BUN 19 mg/dL (8-22); CALCIUM 9.3 mg/dL (8.8-10.2); CHLORIDE 99 mmol/L (98-107); COSMO 285; CREATININE 0.6 mg/dL (0.5-0.9); ESTIMATED GFR > 60; GLUCOSE 128 mg/dL (70-104); POTASSIUM 4.5 mmol/L (3.5-5.1); SODIUM 141 mmol/L (136-145); TCO2 38 mmol/L (25-35)
[2018-04-28] MEDS: SEROQUEL PO SCH ×3 (11:14→23:05)
[2018-04-28] MEDS: LOVENOX SUBQ SCH ×2 (11:14→11:22)
[2018-04-28] MEDS: NICODERM PATCH TD SCH (11:14)
[2018-04-28] MEDS: ROCEPHIN 1 GM in NS 50 ML IV SCH (14:11)
[2018-04-28] MEDS: ATIVAN PO PRN (14:12)
--- NOTE | 2018-04-28 22:55 | PROGRESS NOTE ---
DATE: 04/28/2018 SUBJECTIVE: The patient notes that she is breathing much easier. Much less cough and congestion. Much less shortness of breath. She is asking to go home. PHYSICAL EXAMINATION: Temperature 97.1, pulse 66, respiratory 18, BP 115/86. General: The patient is awake, alert, currently in no distress. HEENT: Normocephalic. Neck: Supple. CARDIOVASCULAR: Regular rate. Chest: Clear, nonlabored. No wheezing. No crackles. Abdomen: Soft, nondistended, obese. Extremities: Moves all extremities. Neurologic: No changes. ASSESSMENT: 1. Chronic obstructive pulmonary disease with acute on chronic exacerbation. 2. Right lower lobe pneumonia. 3. Hypercapnic respiratory failure. PLAN: We had discussed with patient earlier today decreasing her steroids to twice daily and discharging her home. However, her son notes that she is now allowed to come back home until her prescriptions from Psychiatry have been re-updated. We will attempt to contact Psychiatry and follow. cc: Kd Pena MD
[2018-04-28] MEDS: HALDOL PO SCH (23:03)
[2018-04-28] MEDS: LIPITOR PO SCH (23:03)
[2018-04-29] MEDS: ATIVAN PO PRN ×2 (00:56→14:35)
[2018-04-29] MEDS: SOLU-MEDROL IV SCH ×2 (00:58→10:10)
[2018-04-29] MEDS: DUONEB (A & A) INH SCH ×4 (04:42→15:34)
[2018-04-29] MEDS: PROTONIX PO SCH (06:28)
[2018-04-29] MEDS: NICODERM PATCH TD SCH (10:10)
[2018-04-29] MEDS: SEROQUEL PO SCH (10:10)
[2018-04-29] MEDS: LOVENOX SUBQ SCH (10:13)
[2018-04-29] MEDS: ROCEPHIN 1 GM in NS 50 ML IV SCH (14:36)
[2018-04-29 15:58] VITALS: BP 139/59
--- NOTE | 2018-04-30 00:42 | PROGRESS NOTE ---
DATE: 04/29/2018 SUBJECTIVE: Patient notes that she is feeling better. PHYSICAL EXAMINATION: Vital Signs: Temperature 97.1 degrees, pulse 63, respiratory 18, BP 115/60. General: Patient is in no current distress. She is very pleasant to talk with. HEENT: Normocephalic. Neck: Supple. CARDIOVASCULAR: Regular rate. Chest: Clear. Abdomen: Soft. Extremities: Moves all extremities. ASSESSMENT: 1. Acute chronic obstructive pulmonary disease exacerbation. 2. Right lower lobe pneumonia. 3. Hypercapnic respiratory failure. PLAN: Patient overall is stable to go home. However, there appears to be a problem with her discharge as her family is apparently refusing her to come home until Psychiatry sees her. She does have an outpatient psychiatrist. Her medications have been adjusted per him and certainly needs to follow up outpatient with this psychiatrist. Hopefully, this can be resolved and she can discharge over the next day or 2. cc: Kd Pena MD
--- NOTE | 2018-05-03 22:52 | DISCHARGE SUMMARY ---
ADMISSION DATE: 04/24/2018 DISCHARGE DATE: 04/29/2018 DISCHARGE DIAGNOSIS: 1. Chronic obstructive pulmonary disease with exacerbation. 2. Pulmonary infiltrate, right side. 3. Acute hypercapnic respiratory failure. 4. Cerebrovascular accident. 5. Bipolar. 6. Hyperlipidemia. CONSULTATIONS: None. PROCEDURES: None. BRIEF HOSPITAL COURSE: Patient is a 73-year-old female who presented to the hospital and was placed on antibiotics, breathing treatments, oxygen. We discussed with the patient on admission as well as during the hospital stay the perils of smoking as well as reasons and ways to stop. Thankfully, she had an uneventful hospital course. Her Solu-Medrol was able to wean down. On discharge, patient is awake and in no distress. DISPOSITION: Patient will be discharged. Will continue antibiotics and a steroid taper dose. Discussed with her again the perils of smoking as well as ways to stop. Discussed that she needs to follow up outpatient with her primary care. Continue breathing treatments. Greater than 30 minutes was spent in total care. cc: Kd Pena MD
== END 2018-04-29 18:40 | disposition home health service (06) | DRG 190 ==
LOC: P.ED 11:02 → P.MEDSURG 11:03 → SUATTDRO 11:03
PROVIDERS: ATTEND Family Medicine
CPT/HCPCS: 36415; 71010; 71020; 71045; 71046; 80048; 80053; 81001; 82550; 82805; 83605; 84484; 85025; 85027; 87040; 87070; 87088; 87205; 89220; 93005; 94640; 94660; 94761; 94799; 96365; 99285; A9270; J0696; J1650; J2920; J2930; J3370; J7030; J7050

== ENCOUNTER 2018-05-27 13:07 | Inpatient (IN) ==
[2018-05-27] MEDS ORDERED: MAGNESIUM SULFATE 2 GM/S.W.I. 2 GM/50 ML IVPB IV ONE (13:14)
[2018-05-27] MEDS ORDERED: SOLU-MEDROL IV ONE (13:14)
[2018-05-27] MEDS ORDERED: ZITHROMAX PO ONE (13:15)
[2018-05-27] MEDS ORDERED: ROCEPHIN 1 GM in NS 50 ML IV ONE (13:15)
--- NOTE | 2018-05-27 13:23 | PROVIDER DOCUMENTATION ---
This chart was entered by Ebony Kaufman Scribe, acting as scribe for Tabby Lockwood MD. HPI-Respiratory General - General Chief Complaint: Shortness of Breath Stated Complaint: dyspnea Time Seen by Provider: 05/27/18 13:09 Source: patient, EMS Allergies/Adverse Reactions: Patient Allergies Allergy/AdvReac Type Severity Reaction Status Date / Time codeine Allergy RASH Verified 04/24/18 11:08 Home Medications: Home Medication List Medication Instructions Recorded Confirmed Last Taken Type Atorvastatin Calcium [Lipitor] 20 mg PO DAILY 06/06/13 04/24/18 04/07/14 History Haloperidol [Haldol] 5 mg PO HS 06/06/13 04/25/18 04/07/14 History Lorazepam [Ativan] 1 mg PO TID PRN PRN 04/24/18 04/25/18 Unknown History Quetiapine Fumarate 100 mg PO HS 04/25/18 04/25/18 Unknown History Acetaminophen [Tylenol] 650 mg PO Q6H PRN PRN tablet 04/29/18 Unknown Rx Albuterol 2.5MG/Ipratrop 0.5MG 3 ml INH Q4H PRN PRN #180 neb 04/29/18 Unknown Rx [Duoneb (A & A)] CefDINIR [Omnicef] 300 mg PO BID #10 cap 04/29/18 Unknown Rx Lorazepam [Ativan] 1 mg PO TID PRN PRN tablet 04/29/18 Unknown Rx Methylprednisolone [Medrol Dosepak] 4 mg PO DIRECTED #1 pkg 04/29/18 Unknown Rx Nicotine Patch [Nicoderm Patch] 21 mg TD DAILY #14 patch.td24 04/29/18 Unknown Rx Pantoprazole [Protonix] 40 mg PO DAILY@0700 #30 tab 04/29/18 Unknown Rx Quetiapine [Seroquel] 25 mg PO BID tablet 04/29/18 Unknown Rx - History of Present Illness-Resp Nature of Presenting Problem: 73 yof presents to ed w/co sob, coughing x1 week and 102 fever at home. pt was admitted in er last month for pneumonia per ems. pt uses o2 at home sometimes but not all the time. pt's pcp is Dr. Nuñez. pt has no cp, nvd. Was at MDs office today with RA sat in the 70s, given a breathing treatment and not better , EMS arrived and started an hour long breathing treatment and pt improved, on arrival on RA was 83%. Review of Systems - Adult - REVIEW OF SYSTEMS - ADULT Constitutional: reports: see HPI, fever. denies: chills, fatique, night sweats Eyes: reports: no symptoms reported Ears, Nose, Mouth & Throat: reports: no symptoms reported Cardiovascular: reports: no symptoms reported Respiratory: reports: see HPI, cough, shortness of breath. denies: excessive sputum production, pleurisy, wheezing Gastrointestinal: reports: no symptoms reported Genitourinary: reports: no symptoms reported Musculoskeletal: reports: no symptoms reported Integumentary: reports: no symptoms reported Neurological: reports: no symptoms reported Psychiatric: reports: no symptoms reported Endocrine: reports: no symptoms reported Hematologic/Lymphatic: reports: no symptoms reported Allergic/Immunologic: reports: no symptoms reported All Other Systems: Reviewed and Negative Past History - Adult - PAST MEDICAL HISTORY-ADULT Review of Records: reports: Old Records Reviewed, Nursing Assessment Review, Medications Reviewed, Social history reviewed & non-contributory. Major Childhood Illnesses: reports: denies history Cardiovascular: reports: hyperlipidemia Respiratory: reports: asthma, COPD, sleep apnea Gastrointestinal: reports: denies history Obstetrical/Gynecological: reports: denies history Genitourinary: reports: denies history Musculoskeletal: reports: denies history Neurological: reports: CVA Psychiatric: reports: bipolar Endocrine/Immune: reports: denies history Other Conditions: reports: cataract/glaucoma - PRIOR SURGERIES/PROCEDURES Surgical/Procedure History: reports: orthopedic (extremity) (hip orif), other ( cyst removed from bladder, bladder tact, cateract) - IMMUNIZATION STATUS Childhood Immunizations: See Nurse Assessment Flu Vaccine: See Nurse Assessment - FAMILY HISTORY Family History: reviewed, not pertinent - SOCIAL HISTORY Smoking: cigarettes, greater than 1 pack/day Substance Use: none/never Physical Exam-General - PHYSICAL EXAM-ADULT Initial Vital Signs Reviewed: Yes - CONSTITUTIONAL General Appearance: alert, mild distress, other (thin) - EYES Eyes: pink conjunctivae - HEAD, EARS, NOSE, MOUTH & THROAT HENMT: moist mucous membranes - NECK Neck: full range of motion, supple - RESPIRATORY Respiratory: other (decreased breath sounds diffusely, wheezing diffusely, working mildly to breath, on O2 2L O2 sats 91%) - GASTROINTESTINAL (ABDOMEN) Abdominal Exam: non tender, soft - MUSCULOSKELETAL Extremity: normal range of motion Peripheral Pulses: radial (R): 2+, radial (L): 2+ - NEUROLOGIC Neurologic: grossly normal, no motor/sensory deficits - PSYCHIATRIC Psych/Mental Status: normal mood/affect, normal thought content, normal thought process, oriented x 3 - HEART Score HEART Score: History: Slightly Suspicious HEART Score: ECG: Non-Specific Repolarization Disturbance/LBBB/PM HEART Score: Age: > or = 65 Years HEART Score: Risk Factors for Atherosclerotic Disease: 1 or 2 Risk Factors HEART Score: Troponin: < or = Normal Limit Total HEART Score:: 4 Progress - PLAN OF CARE/RESULTS Progress/Plan/Lab Results: Vital Signs - 8 hr 05/27/18 13:09 05/27/18 13:55 05/27/18 14:13 Temperature 98.0 F 101 F H Pulse Rate 111 H 100 H Respiratory Rate 30 H 28 H Blood Pressure 104/078 155/68 O2 Sat by Pulse Oximetry 93 L 85 L 05/27/18 14:15 05/27/18 15:00 Temperature 100 F H Pulse Rate 105 H 100 H Respiratory Rate 29 H 30 H Blood Pressure 133/67 136/55 O2 Sat by Pulse Oximetry 90 L 90 L Laboratory Results - last 24 hr 05/27/18 05/27/18 05/27/18 13:25 13:25 13:25 WBC RBC Hgb Hct MCV MCH MCHC RDW Std Deviation Plt Count MPV Immature Gran % (Auto) Neut % (Auto) Lymph % (Auto) [place] % (Auto) Eos % (Auto) Baso % (Auto) Immature Gran # (Auto) Neut # (Auto) Lymph # (Auto) [place] # (Auto) Eos # (Auto) Baso # (Auto) PT INR PTT (Actin FS) Sodium 137 Potassium 4.3 Chloride 97 L Carbon Dioxide 26 Anion Gap 14 BUN 24 H Creatinine 0.9 Estimated GFR/1.73 m2 > 60 BUN/Creatinine Ratio 27 Glucose 171 H Calculated Osmolality 282 Calcium 8.9 Total Bilirubin 0.50 AST 20 ALT 12 Alkaline Phosphatase 110 H Troponin T < 0.010 Kfk-[id number]-Ixcqlvpvejl Pept Total Protein 7.1 Albumin 3.6 Globulin 4.0 Albumin/Globulin Ratio 1.0 Plasma Lactate 2.0 05/27/18 05/27/18 05/27/18 13:25 13:25 13:25 WBC 9.38 RBC 4.99 Hgb 13.1 Hct 42.3 MCV 84.8 MCH 26.3 L MCHC 31.0 L RDW Std Deviation 16.7 H Plt Count 121 L MPV Not Reportable Immature Gran % (Auto) 0.5 Neut % (Auto) 91.2 H Lymph % (Auto) 3.3 L [place] % (Auto) 4.9 Eos % (Auto) 0.0 Baso % (Auto) 0.1 Immature Gran # (Auto) 0.05 H Neut # (Auto) 8.55 H Lymph # (Auto) 0.31 L [place] # (Auto) 0.46 Eos # (Auto) 0.00 Baso # (Auto) 0.01 PT 14.7 INR 1.09 PTT (Actin FS) 37.4 Sodium Potassium Chloride Carbon Dioxide Anion Gap BUN Creatinine Estimated GFR/1.73 m2 BUN/Creatinine Ratio Glucose Calculated Osmolality Calcium Total Bilirubin AST ALT Alkaline Phosphatase Troponin T Acq-V-Txgnapzscai Pept 788 H Total Protein Albumin Globulin Albumin/Globulin Ratio Plasma Lactate Orders Category Date Time Status Cardiac Monitoring DIRECTED Care 05/27/18 13:13 Active Oxygen Therapy- ED Nursing DIRECTED Care 05/27/18 13:13 Active Saline Loc NOW Care 05/27/18 13:13 Active CHEST-PORTABLE [RAD] Stat Exams 05/27/18 13:13 Completed BLOOD CULTURE [BLDCUL] Stat Lab 05/27/18 13:27 Received CBC WITH ELECTRONIC DIFF [HEME] Stat Lab 05/27/18 13:25 Completed COMPREHENSIVE METABOLIC PANEL [CHEM] Stat Lab 05/27/18 13:25 Completed LACTATE, PLASMA [CHEM] Stat Lab 05/27/18 13:25 Completed PRO B-NATRIURETIC PEPTIDE Stat Lab 05/27/18 13:25 Completed PROTIME WITH INR [COAG] Stat Lab 05/27/18 13:25 Completed PTT [COAG] Stat Lab 05/27/18 13:25 Completed TROPONIN T Stat Lab 05/27/18 13:25 Completed Azithromycin [Zithromax] Med 05/27/18 13:15 Discontinued 500 mg PO NOW ONE CefTRIAXONE [Rocephin] 1 gm Med 05/27/18 13:15 Discontinued 0.9% Sodium Chloride Inj [Ns] 50 ml IV NOW Ibuprofen [Motrin Liquid] Med 05/27/18 13:54 Discontinued 400 mg .ROUTE .STK-MED ONE Ibuprofen [Motrin Liquid] Med 05/27/18 13:56 Discontinued 400 mg PO NOW ONE Magnesium Sulfate 2 gm/S.w.i. [Magnesium Sulfate 2 gm/S Med 05/27/18 13:14 Discontinued .w.i] 2 gm in 50 ml IV NOW Methylprednisolone Sod Succ [Solu-Medrol] Med 05/27/18 13:14 Discontinued 125 mg IV NOW ONE CP/SOB/Palp >45 yrs of Age Stat Oth 05/27/18 13:13 Ordered EKG [EKG] Stat Ther 05/27/18 13:13 Ordered 1455 due to the level of significant disease of emphysema, rec admit and she agreed, call out to Becky now 1551 d/w [place] HPI exam results treatment need for admit, meets SIRS lactate nl, agreed to admit Result Diagrams: 05/27/18 13:25 05/27/18 13:25 - EKG 1 Time of EKG reading by physician:: 14:40 EKG Read and Signed by:: Tabby Lockwood EKG Interpretation (*Must complete 3 of following elements*): Abnormal Rate: 92 Rhythm: SR w/premature atrial complexes CA Interval: normal ST Wave: non-specific ST changes (non specific st abnormality) Comments: no change from 04-24-18 Departure - Departure Date of Disposition Decision: 05/27/18 Time of Disposition Decision: 14:56 DIAGNOSIS: COPD exacerbation Pneumonia Qualifiers: Laterality: right Lung location: lower lobe of lung Disposition: ADMITTED INPATIENT 09 Certified Medical Emergency: Emergent Condition: Good Additional Freetext Instructions: 15:51 [place] admit Referrals and Follow-Ups: Kenneth Nuñez [Primary Care Provider] - - Critical Care Note This patient required my direct & personal management of CC.: No Attestation - Physician/ PHU Attestation Patient care was provided by Advanced Practice Provider:: No The physician spent face to face time with patient:: Yes Advanced Practice Provider documentation review:: Supervising physician onsite and consulted in the evaluation and care of this patient. The physician did have a face to face encounter with the patient. This chart was documented by the indicated scribe, (Ebony Kaufman Scribe) and accurately reflects the services I performed and decisions made by me, Tabby Lockwood MD, as attested by the provider's signature.
--- NOTE | 2018-05-27 13:47 | Diag Imaging Result Doc PS360 ---
EXAM: CHEST-PORTABLE HISTORY: dyspnea copd TECHNIQUE: Chest single view COMPARISON: 04/25/2018 FINDINGS: Dense right-sided infiltrate on the current exam. No cardiomegaly. No vascular distention. No pleural effusions identified. Mild scoliosis. IMPRESSION: Development of right-sided pneumonia. Electronically signed by Pk Bear 05/27/2018 1:45 PM
[2018-05-27] MEDS ORDERED: MOTRIN LIQUID ONE (13:54)
[2018-05-27] MEDS ORDERED: MOTRIN LIQUID PO ONE (13:56)
[2018-05-27 14:04] LABS: AGAP 14; ALBUMIN 3.6 g/dL (3.5-5.0); ALKALINE PHOSPHATASE 110 U/L (32-104); BUN 24 mg/dL (8-22); CALCIUM 8.9 mg/dL (8.8-10.2); CHLORIDE 97 mmol/L (98-107); COSMO 282; CREATININE 0.9 mg/dL (0.5-0.9); ESTIMATED GFR > 60; GLUCOSE 171 mg/dL (70-104); GOT 20 U/L (10-30); GPT 12 U/L (10-36); POTASSIUM 4.3 mmol/L (3.5-5.1); SODIUM 137 mmol/L (136-145); TCO2 26 mmol/L (25-35); TOTAL PROTEIN 7.1 g/dL (6.3-8.3)
[2018-05-27 14:06] LABS: BASO# 0.01 X1000 (0.0-0.2); BASO% 0.1 % (0.0-0.8); HEMATOCRIT 42.3 % (37.0-47.0); HEMOGLOBIN 13.1 g/dL (12.0-16.0); IMM GRAN# 0.05 X1000 (0.0-0.04); IMM GRAN% 0.5 % (0.0-0.5); LYMPH# 0.31 X1000 (1.2-3.4); LYMPH% 3.3 % (20.5-51.1); MCH 26.3 PG (27-31); MCV 84.8 FL (81-99); MONO# 0.46 X1000 (0.11-0.59); MONO% 4.9 % (1.7-9.3); NEUT# 8.55 X1000 (1.4-6.5); NEUT% 91.2 % (42.2-75.2); PLT 121 X1000 (130-400); RBC 4.99 XMIL (4.2-5.4); RDW 16.7 % (11.5-14.5); WBC 9.38 X1000 (4.8-10.8)
[2018-05-27 14:25] LABS: INR 1.09; PROTIME 14.7 Seconds (11.0-16.0)
[2018-05-27 14:26] LABS: PTT 37.4 Seconds (22.3-41.8)
[2018-05-27] MEDS ORDERED: DUONEB (A & A) INH PRN ×2 (17:43→17:59)
[2018-05-27] MEDS ORDERED: TYLENOL PO PRN (17:46)
[2018-05-27] MEDS ORDERED: ZOFRAN IV PRN ×2 (17:46→17:59)
[2018-05-27] MEDS ORDERED: LOVENOX SUBQ SCH (18:00)
[2018-05-27] MEDS ORDERED: NICODERM PATCH TD PRN (18:29)
--- NOTE | 2018-05-27 18:35 | EKG Report ---
Test Performed on : 05/27/2018 2:36:27 PM Test Reason : dyspnea Blood Pressure : / mmHG Vent. Rate : 092 BPM Atrial Rate : 092 BPM P-R Int : 168 ms QRS Dur : 108 ms QT Int : 354 ms P-R-T Axes : 077 069 053 degrees QTc Int : 437 ms Sinus rhythm. with premature atrial complexes. Nonspecific ST abnormality Abnormal ECG When compared with ECG of 24-APR-2018 11:09, No significant change was found Unconfirmed Result
--- NOTE | 2018-05-27 18:58 | HISTORY AND PHYSICAL ---
CHIEF COMPLAINT: Shortness of breath, fever. HISTORY OF PRESENT ILLNESS: This is a 73-year-old female with a history of COPD, tobacco use and abuse, bipolar disorder and hyperlipidemia. She presents to the emergency room complaining of shortness of breath and cough for a week. She has had intermittent fevers as high as 102 degrees at home. She did state that she had pneumonia about 4 or 5 weeks ago. She does not feel that she has improved much. She does use home O2, although she does not use it all the time. She was seen by her PCP today and found to have a room air saturation in the 70s. It did not improve after breathing treatments; therefore, he called EMS, prompting her arrival to the emergency room. On arrival to the emergency room she had a room air saturation of 83%. She did develop a temperature of 101 degrees. She was found to have right-sided pneumonia. Blood cultures were obtained. She was given azithromycin and Rocephin, and is being admitted for further evaluation and treatment. PAST MEDICAL HISTORY: COPD, tobacco use, prior CVA, bipolar disorder, hyperlipidemia. PAST SURGICAL HISTORY: Breast biopsy. SOCIAL HISTORY: She lives alone. She smokes 1 to 2 packs a day, has since she was 19 years old. ALLERGIES: Codeine. HOME MEDICATIONS: A list will be obtained by the nursing staff. We will review and restart as appropriate. REVIEW OF SYSTEMS: Discussed with the patient, with pertinent positives stated in the HPI. She denied any syncope or dizziness, any chest pain, palpitations, any nausea, vomiting, diarrhea or constipation, any black or bloody vomitus or stools, any hematuria, dysuria, frequency or urgency. PHYSICAL EXAMINATION: GENERAL: This is a 73-year-old female who is lying in the bed in no distress. VITAL SIGNS: Blood pressure is 136/55 with a heart rate of 100, respirations are 26 to 28, temperature is 101 degrees with O2 saturations that are 90% on room air. They are 90% to 92% on 2 L nasal cannula. EYES: Pupils are equal, round and react to light. EOMs are intact. Sclerae are anicteric. HEENT: Head is normocephalic, atraumatic. Mucous membranes are moist. NECK: Supple, with trachea midline. CARDIOVASCULAR: Regular rate and rhythm. S1 and S2 appreciated. She is tachycardic. No murmurs, no rubs. PULMONARY: Breath sounds are decreased throughout. She does have diffuse wheezing. Chest rises and falls symmetrically with respiration. GASTROINTESTINAL: Abdomen is soft, nontender, nondistended with bowel sounds in all 4 quadrants. GENITOURINARY: She has no CVA nor suprapubic tenderness. NEUROLOGIC: She is alert and oriented x3. SKIN: Warm and dry. LABORATORY DATA: WBC is 9.3 with a hemoglobin 13.1, hematocrit 42.3 and platelets of 121,000. Sodium is 137, potassium 4.3, BUN 24, creatinine 0.9 with a glucose of 171. Troponin is negative. Blood cultures are pending. DIAGNOSTIC DATA: Chest x-ray reveals right-sided pneumonia. ASSESSMENT: 1. Right-sided pneumonia. 2. Hypoxemia. 3. Chronic obstructive pulmonary disease exacerbation. 4. History of cerebrovascular accident. 5. History of bipolar disorder. 6. Chronic tobacco use and abuse. 7. Thrombocytopenia. PLAN: The patient has been admitted to the medical/surgical floor and placed on telemetry which we will continue. We will continue with supplemental oxygen with DuoNeb q.4 hours, with q.2 hours p.r.n. We will give steroids to taper. We will continue with gentle hydration, incentive spirometer q.4 hours per Respiratory Therapy. We will obtain a sputum culture. CBC with differential and CMP in the morning. We will give a nicotine patch p.r.n. craving. For DVT prophylaxis we will use SCDs, holding off on any anticoagulation as she does have low platelets. We will monitor her labs. Further treatments pending hospital course. Dictated by GLADIS Buckley for Kd Pena MD This chart was documented by, GLADIS Buckley and accurately reflects the services performed, treatment plan and medical decisions as attested by the providers signature Kd Pena MD. cc: GLADIS Buckley MD
[2018-05-27] MEDS: DUONEB (A & A) INH SCH ×4 (18:59→23:19)
[2018-05-27] MEDS: NS 1,000 ML IV SCH (19:02)
[2018-05-27] MEDS: DOXYCYCLINE 100 MG in NS 250 ML IV SCH (19:03)
[2018-05-27] MEDS: SOLU-MEDROL IV SCH (21:16)
[2018-05-27] MEDS: ROCEPHIN 1 GM in NS 50 ML IV SCH (21:17)
--- NOTE | 2018-05-27 23:21 | HISTORY AND PHYSICAL ---
CHIEF COMPLAINT: Shortness of breath. HISTORY OF PRESENT ILLNESS: The patient is a 73-year-old female who presented to [facility] ER secondary to increased work of breathing for the past week. She has had fever up to 102 at home. States that she was told she had pneumonia. She was brought to the ER by ambulance service. States she is on oxygen at home but not all the time. Her primary care is Dr. Nuñez. She was recently given breathing treatments and antibiotics, but this did not help. On arrival to the ER, her room air saturation was 83%. REVIEW OF SYSTEMS: Positive cough, congestion, shortness of breath, increased fatigue, fever. Denies any production to her cough. Denies any chest pain, palpitations. Denies any headaches, blurry vision, change in vision. Denies any focalized numbness, tingling, weakness in her extremities. Denies dysuria or frequency. Denies constipation, melena, hematochezia. Has had increased cough, increased work of breathing, increased shortness of breath, dyspnea on exertion. PAST MEDICAL HISTORY: COPD, sleep apnea, history of CVA, bipolar disease, cataracts, glaucoma. PAST SURGICAL HISTORY: She has had hip replacement, cyst removed from the bladder, and cataract surgery. FAMILY HISTORY: Noncontributory. SOCIAL HISTORY: The patient smokes a pack a day. Denies alcohol. Primary care is Dr. Nuñez. PHYSICAL EXAMINATION: VITAL SIGNS: Temperature 98 to 101, pulse 100 to 110, respiratory 28, BP 104/78 to 156/68, saturating 85% on room air, currently 90% on 2 L. GENERAL: The patient is awake, alert. She is pleasant to talk with although is somewhat ill appearing. She is in mild respiratory distress. HEENT: Normocephalic. NECK: Supple. CARDIOVASCULAR: Regular rate. RESPIRATORY: Decreased but equal breath sounds. Positive rhonchi throughout. No current crackles. Mild wheezing. ABDOMEN: Soft, nondistended, nontender. EXTREMITIES: Moves all extremities. NEUROLOGIC: No focal changes. The patient is awake and alert. She was able to ambulate from the stretcher to the bed without assistance. ASSESSMENT: 1. Febrile illness. 2. Pneumonia. 3. Chronic obstructive pulmonary disease with exacerbation. 4. Chronic tobacco abuse. 5. Bipolar. 6. Hyperglycemia. PLAN: We will continue the patient in the hospital. We will restart her home medications when I have an accurate list. We will not her start on Solu-Medrol currently, given her blood sugar is elevated and she has pneumonia. However, if she does not improve, we will start Solu-Medrol as well as sliding scale insulin and will follow. cc: Kd Pena MD
[2018-05-28] MEDS: DUONEB (A & A) INH SCH ×7 (04:00→22:58)
[2018-05-28] MEDS: DOXYCYCLINE 100 MG in NS 250 ML IV SCH ×2 (06:30→17:31)
[2018-05-28] MEDS: SOLU-MEDROL IV SCH ×3 (06:31→21:12)
[2018-05-28 06:54] LABS: AGAP 13; ALBUMIN 3.1 g/dL (3.5-5.0); ALKALINE PHOSPHATASE 110 U/L (32-104); BUN 26 mg/dL (8-22); CALCIUM 8.9 mg/dL (8.8-10.2); CHLORIDE 103 mmol/L (98-107); COSMO 289; CREATININE 0.7 mg/dL (0.5-0.9); ESTIMATED GFR > 60; GLUCOSE 194 mg/dL (70-104); GOT 12 U/L (10-30); GPT 14 U/L (10-36); POTASSIUM 3.4 mmol/L (3.5-5.1); SODIUM 140 mmol/L (136-145); TCO2 25 mmol/L (25-35); TOTAL PROTEIN 6.3 g/dL (6.3-8.3)
[2018-05-28 07:07] LABS: BASO# 0.01 X1000 (0.0-0.2); BASO% 0.1 % (0.0-0.8); HEMATOCRIT 37.1 % (37.0-47.0); HEMOGLOBIN 11.3 g/dL (12.0-16.0); IMM GRAN# 0.01 X1000 (0.0-0.04); IMM GRAN% 0.1 % (0.0-0.5); MCH 26.2 PG (27-31); MCHC 30.5 g/dL (33-37); MCV 86.1 FL (81-99); MONO# 0.24 X1000 (0.11-0.59); MONO% 3.6 % (1.7-9.3); NEUT# 6.28 X1000 (1.4-6.5); NEUT% 93.2 % (42.2-75.2); PLT 95 X1000 (130-400); RBC 4.31 XMIL (4.2-5.4); RDW 16.3 % (11.5-14.5); WBC 6.74 X1000 (4.8-10.8)
[2018-05-28] MEDS: NS 1,000 ML IV SCH (07:31)
[2018-05-28] MEDS ORDERED: DUONEB (A & A) INH PRN (08:30)
[2018-05-28] MEDS ORDERED: TYLENOL PO PRN (08:30)
[2018-05-28 09:14] LABS: ANISOCYTOSIS 1+; BANDS 10 % (0-1); LYMPHS 4 % (21-51); SEGS 86 % (42-75)
[2018-05-28] MEDS: NICODERM PATCH TD SCH (10:23)
[2018-05-28] MEDS: ATIVAN PO PRN (10:31)
[2018-05-28] MEDS: ROCEPHIN 1 GM in NS 50 ML IV SCH (19:48)
[2018-05-28] MEDS: SEROQUEL PO SCH (21:13)
[2018-05-28] MEDS: LIPITOR PO SCH (21:13)
[2018-05-28] MEDS: HALDOL PO SCH (21:13)
--- NOTE | 2018-05-28 23:16 | PROGRESS NOTE ---
DATE: 05/28/2018 SUBJECTIVE: Patient notes that she is feeling a little bit better, still having cough, congestion, still having shortness of breath. Denies any current fevers. Denies any dysuria, frequency. PHYSICAL EXAM: Vital signs: Temperature 98.2, pulse 75, respiratory 18, BP is 119/54. General: Patient is awake, alert, currently in no distress, although is still somewhat ill-appearing. HEENT: Normocephalic. Neck: Supple. Cardiovascular: Regular rate. Chest: Clear. No current Her wheezing is better which she also just received a breathing treatment. Abdomen: Soft, nondistended. Extremities: Moves all extremities. ASSESSMENT: 1. Febrile illness. 2. Pneumonia. 3. Chronic obstructive pulmonary disease with exacerbation. 4. Tobacco abuse. 5. Bipolar. PLAN: Continue Rocephin, doxycycline. Continue Solu-Medrol. Restart her home medications. Further orders as needed. cc: Kd Pena MD MTDD
[2018-05-29] MEDS: NS 1,000 ML IV SCH (00:05)
[2018-05-29] MEDS: DUONEB (A & A) INH SCH ×6 (03:42→22:44)
[2018-05-29] MEDS: DOXYCYCLINE 100 MG in NS 250 ML IV SCH (05:14)
[2018-05-29] MEDS: SOLU-MEDROL IV SCH ×3 (05:14→21:40)
[2018-05-29 07:02] LABS: HEMATOCRIT 35.8 % (37.0-47.0); HEMOGLOBIN 10.5 g/dL (12.0-16.0); IMM GRAN# 0.08 X1000 (0.0-0.04); IMM GRAN% 1.5 % (0.0-0.5); LYMPH# 0.31 X1000 (1.2-3.4); LYMPH% 5.9 % (20.5-51.1); MCH 25.9 PG (27-31); MCHC 29.3 g/dL (33-37); MCV 88.4 FL (81-99); MONO# 0.21 X1000 (0.11-0.59); MPV 13.6 FL (7.4-10.4); NEUT# 4.63 X1000 (1.4-6.5); NEUT% 88.6 % (42.2-75.2); PLT 103 X1000 (130-400); RBC 4.05 XMIL (4.2-5.4); RDW 16.8 % (11.5-14.5); WBC 5.23 X1000 (4.8-10.8)
[2018-05-29 07:08] LABS: AGAP 10; BUN 21 mg/dL (8-22); CALCIUM 8.8 mg/dL (8.8-10.2); CHLORIDE 108 mmol/L (98-107); COSMO 297; CREATININE 0.6 mg/dL (0.5-0.9); ESTIMATED GFR > 60; GLUCOSE 162 mg/dL (70-104); SODIUM 146 mmol/L (136-145); TCO2 28 mmol/L (25-35)
[2018-05-29 08:19] LABS: ANISOCYTOSIS 1+; LYMPHS 4 % (21-51); MONO 3 % (1-9); SEGS 93 % (42-75)
[2018-05-29] MEDS: NICODERM PATCH TD SCH (09:43)
[2018-05-29] MEDS: ATIVAN PO PRN ×2 (16:37→20:57)
[2018-05-29] MEDS ORDERED: CARDIZEM IV ONE (16:50)
[2018-05-29] MEDS ORDERED: CARDIZEM 125/NS 125 MG/125 ML IVPB IV SCH (19:00)
[2018-05-29] MEDS: SEROQUEL PO SCH (20:56)
[2018-05-29] MEDS: DOXYCYCLINE PO SCH (20:56)
[2018-05-29] MEDS: ROCEPHIN 1 GM in NS 50 ML IV SCH (20:56)
[2018-05-29] MEDS: LIPITOR PO SCH (20:57)
[2018-05-29] MEDS: ROBITUSSIN-DM PO PRN (21:46)
[2018-05-29] MEDS: HALDOL PO SCH (21:58)
--- NOTE | 2018-05-29 23:12 | PROGRESS NOTE ---
DATE: 05/29/2018 Delete. cc: Kd Pena MD MTDD
--- NOTE | 2018-05-29 23:16 | PROGRESS NOTE ---
DATE: 05/29/2018 SUBJECTIVE: Patient seen and examined. She currently awake, alert, she is in no distress. PHYSICAL: Temperature 98, pulse 84-140, respiratory 14-18, BP 137/35.General: Patient is awake, alert currently in moderate distress. HEENT: Normocephalic. Neck: Supple. CV: Irregular rate, irregular rhythm. Chest: Positive wheezing partially throughout, equal but decreased breath sounds. Abdomen: Soft, nondistended, nontender. Extremities: Moves all extremities. ASSESSMENT: 1. Chronic obstructive pulmonary disease exacerbation she is wheezing more this morning. Will continue Solu-Medrol, antibiotics, breathing treatments, oxygen . 2. Atrial fibrillation, uncertain this new onset although patient does not recall ever being told she has atrial fibrillation. 3. Pneumonia. 4. Fever. 5. Chronic tobacco abuse . 6. Bipolar. PLAN: Will move patient ICU, again discussed her the perils of smoking, will rule out for ME, continue antibiotics, breathing treatments, oxygen. cc: Kd Pena MD
[2018-05-30] MEDS: DUONEB (A & A) INH SCH ×2 (03:24→11:23)
[2018-05-30] MEDS: ROBITUSSIN-DM PO PRN ×2 (06:16→20:43)
[2018-05-30] MEDS: SOLU-MEDROL IV SCH ×3 (06:17→22:15)
[2018-05-30 06:29] LABS: BASO# 0.01 X1000 (0.0-0.2); BASO% 0.2 % (0.0-0.8); HEMATOCRIT 35.8 % (37.0-47.0); HEMOGLOBIN 10.5 g/dL (12.0-16.0); IMM GRAN# 0.39 X1000 (0.0-0.04); IMM GRAN% 6.3 % (0.0-0.5); LYMPH# 0.36 X1000 (1.2-3.4); LYMPH% 5.8 % (20.5-51.1); MCH 26.1 PG (27-31); MCHC 29.3 g/dL (33-37); MCV 88.8 FL (81-99); MONO# 0.28 X1000 (0.11-0.59); MONO% 4.5 % (1.7-9.3); MPV 12.6 FL (7.4-10.4); NEUT# 5.13 X1000 (1.4-6.5); NEUT% 83.2 % (42.2-75.2); PLT 115 X1000 (130-400); RBC 4.03 XMIL (4.2-5.4); RDW 16.8 % (11.5-14.5); WBC 6.17 X1000 (4.8-10.8)
[2018-05-30 06:40] LABS: AGAP 12; BUN 24 mg/dL (8-22); CALCIUM 8.8 mg/dL (8.8-10.2); CHLORIDE 107 mmol/L (98-107); COSMO 302; CREATININE 0.6 mg/dL (0.5-0.9); ESTIMATED GFR > 60; GLUCOSE 173 mg/dL (70-104); PHOSPHORUS 2.9 mg/dL (2.7-4.5); POTASSIUM 4.3 mmol/L (3.5-5.1); SODIUM 148 mmol/L (136-145); TCO2 28 mmol/L (25-35)
[2018-05-30 06:54] LABS: AGAP 10; ALBUMIN 2.8 g/dL (3.5-5.0); ALKALINE PHOSPHATASE 90 U/L (32-104); BUN 22 mg/dL (8-22); CALCIUM 8.7 mg/dL (8.8-10.2); CHLORIDE 108 mmol/L (98-107); COSMO 298; CREATININE 0.6 mg/dL (0.5-0.9); ESTIMATED GFR > 60; GLUCOSE 173 mg/dL (70-104); GOT 68 U/L (10-30); GPT 113 U/L (10-36); MAGNESIUM 1.8 mg/dL (1.5-2.7); POTASSIUM 4.2 mmol/L (3.5-5.1); SODIUM 146 mmol/L (136-145); TCO2 28 mmol/L (25-35); TOTAL BILIRUBIN < 0.15 mg/dL (0.20-1.00); TOTAL PROTEIN 5.6 g/dL (6.3-8.3)
[2018-05-30 07:04] LABS: LYMPHS 10 % (21-51); MONO 5 % (1-9); SEGS 85 % (42-75)
[2018-05-30] MEDS ORDERED: XOPENEX NEB ONE (07:54)
[2018-05-30] MEDS: NICODERM PATCH TD SCH (09:01)
[2018-05-30] MEDS: DOXYCYCLINE PO SCH ×2 (09:01→20:44)
[2018-05-30] MEDS: ATIVAN PO PRN ×2 (09:01→17:08)
--- NOTE | 2018-05-30 12:37 | Diag Imaging Result Doc PS360 ---
EXAM: CT THORAX W/CONTRAST 05/30/2018 HISTORY: pneumonia Questionable TECHNIQUE: This exam was performed using automated exposure control, adjustment of mA or kV according to patient size, and/or use of iterative reconstruction technique. COMMENT: No intravenous contrast was administered due to a nonfunctional intravenous line. There is dense alveolar opacification in the superior segment of the right lower lobe. There is volume loss and opacity in the right middle lobe. There is opacification of the posterior basal portions of both lower lobes with air bronchograms. There are small bilateral pleural effusions. There are calcifications present in the left upper lobe and nodes in the left hilum. There are spondylotic changes present in the thoracic and lower cervical spine. There are granulomata in the spleen which appears to be slightly enlarged measuring in excess of 14 cm in AP dimension. IMPRESSION: Pneumonia particularly in the right lower lobe. Atelectatic changes in the lower lobes and middle lobe. Bilateral small pleural effusions. Electronically signed by Ozzy Ramirez 05/30/2018 12:34 PM
[2018-05-30] MEDS: CARDIZEM PO SCH ×2 (13:32→17:08)
[2018-05-30] MEDS: XOPENEX NEB INH SCH ×2 (16:28→21:00)
[2018-05-30] MEDS: ROCEPHIN 1 GM in NS 50 ML IV SCH (20:44)
[2018-05-30] MEDS: SEROQUEL PO SCH (20:44)
[2018-05-30] MEDS: HALDOL PO SCH (20:45)
[2018-05-30] MEDS: LIPITOR PO SCH (20:45)
--- NOTE | 2018-05-31 01:17 | PROGRESS NOTE ---
DATE: 05/30/2018 SUBJECTIVE: Patient overall notes that she is feeling better. She is having less wheezing, less coughing, less congestion. PHYSICAL EXAMINATION: Vital Signs: Reviewed. Temperature 99 degrees, pulse "20," respiratory 25, BP 140/60. General: Patient is awake, alert, very pleasant to talk with. She is currently back in sinus rhythm. Cardiovascular: Regular rate. No appreciable murmurs. Chest: Decreased but equal breath sounds bilaterally. Minimal wheezing. Abdomen: Soft, nondistended, nontender. Extremities: Moves all extremities. ASSESSMENT: 1. Chronic obstructive pulmonary disease with exacerbation. 2. Atrial fibrillation rapid ventricular response, currently back in sinus rhythm, likely secondary to her pulmonary status. 3. Chronic tobacco abuse. 4. Pneumonia. 5. Febrile illness. 6. Acute hepatitis. 7. Bipolar. PLAN: Continue patient in the hospital, antibiotics, Solu-Medrol, breathing treatments, oxygen, symptomatic care and we will follow. cc: Kd Pena MD
[2018-05-31] MEDS: XOPENEX NEB INH SCH ×4 (04:32→21:44)
[2018-05-31 06:09] LABS: BASO# 0.02 X1000 (0.0-0.2); BASO% 0.3 % (0.0-0.8); HEMATOCRIT 36.7 % (37.0-47.0); HEMOGLOBIN 10.9 g/dL (12.0-16.0); IMM GRAN# 0.71 X1000 (0.0-0.04); IMM GRAN% 11.9 % (0.0-0.5); LYMPH# 0.55 X1000 (1.2-3.4); LYMPH% 9.2 % (20.5-51.1); MCH 26.1 PG (27-31); MCHC 29.7 g/dL (33-37); MONO# 0.13 X1000 (0.11-0.59); MONO% 2.2 % (1.7-9.3); MPV 12.2 FL (7.4-10.4); NEUT# 4.58 X1000 (1.4-6.5); NEUT% 76.4 % (42.2-75.2); PLT 141 X1000 (130-400); RBC 4.17 XMIL (4.2-5.4); RDW 16.6 % (11.5-14.5); WBC 5.99 X1000 (4.8-10.8)
[2018-05-31] MEDS: SOLU-MEDROL IV SCH ×3 (06:10→21:07)
[2018-05-31 06:27] LABS: AGAP 8; ALBUMIN 2.9 g/dL (3.5-5.0); BUN 26 mg/dL (8-22); CALCIUM 8.8 mg/dL (8.8-10.2); CHLORIDE 107 mmol/L (98-107); COSMO 299; CREATININE 0.6 mg/dL (0.5-0.9); ESTIMATED GFR > 60; GLUCOSE 167 mg/dL (70-104); PHOSPHORUS 3.8 mg/dL (2.7-4.5); POTASSIUM 4.3 mmol/L (3.5-5.1); SODIUM 146 mmol/L (136-145); TCO2 31 mmol/L (25-35)
[2018-05-31] MEDS: NICODERM PATCH TD SCH (10:10)
[2018-05-31] MEDS: ATIVAN PO PRN ×2 (10:10→17:11)
[2018-05-31] MEDS: DOXYCYCLINE PO SCH ×2 (10:10→20:52)
[2018-05-31] MEDS: CARDIZEM PO SCH ×3 (10:11→17:11)
[2018-05-31 10:16] LABS: HEMATOCRIT 39.9 % (37.0-47.0); HEMOGLOBIN 11.9 g/dL (12.0-16.0); MCH 26.2 PG (27-31); MCHC 29.8 g/dL (33-37); MCV 87.9 FL (81-99); MPV 12.2 FL (7.4-10.4); RBC 4.54 XMIL (4.2-5.4); RDW 16.6 % (11.5-14.5); WBC 7.28 X1000 (4.8-10.8)
[2018-05-31 10:34] LABS: AGAP 9; BUN 26 mg/dL (8-22); CHLORIDE 107 mmol/L (98-107); COSMO 302; CREATININE 0.6 mg/dL (0.5-0.9); ESTIMATED GFR > 60; GLUCOSE 153 mg/dL (70-104); POTASSIUM 4.1 mmol/L (3.5-5.1); SODIUM 148 mmol/L (136-145); TCO2 32 mmol/L (25-35)
--- NOTE | 2018-05-31 16:50 | ECHO REPORT ---
ORDER DATE: 05/29/2018 ECHOCARDIOGRAPHIC MEASUREMENTS: Interventricular septum 1.3 cm. Left ventricular posterior wall 1.3 cm. Diastolic diameter 4.3 cm. Left atrium 3.6 cm. Aorta 3.5 cm. SUMMARY OF THE TWO-DIMENSIONAL IMAGING: Aortic valve leaflets are trileaflet. Pulmonic valve was normal. Tricuspid valve was normal. Mitral valve was normal. Aortic valve leaflets were mildly sclerosed, trileaflet. Normal left ventricular cavity size. Mild left ventricular hypertrophy. Estimated ejection fraction of 65% to 70%. There is diastolic dysfunction. There is mild left atrial enlargement. There is trace to mild tricuspid regurgitation. Peak velocity across the tricuspid valve was 2 m/sec. Trace pulmonary regurgitation. There is mild mitral regurgitation. Peak velocity across the aortic valve less than 2 m/sec. By Doppler studies, there is no aortic stenosis or regurgitation. There is no pericardial effusion or obvious intracardiac mass or thrombus seen. cc: MD Meg Patel CRNP
--- NOTE | 2018-05-31 18:03 | PROGRESS NOTE ---
DATE: 05/31/2018 SUBJECTIVE: Patient overall states she is feeling better, breathing is improved, she denies any palpitations, chest pain. Still has shortness of breath, has not been out of bed. PHYSICAL: Temperature 96.5 degrees, pulse 70, respiratory 18, BP 147/66.General: Patient is in mild current respiratory distress but much improved from admission. HEENT: Normocephalic. Neck: Supple. CV: Regular rate, no murmurs, appears in sinus. Chest: No wheezing, mildly labored, no crackles, good air movement. Abdomen: Soft, nondistended, no masses. Extremities: Moves all extremities. No edema. Neuro: No focal changes. ASSESSMENT: 1. Pneumonia improving. 2. Atrial fibrillation, new onset, converted to sinus. 3. Chronic obstructive pulmonary disease with exacerbation. 4. Chronic tobacco abuse . 5. Bipolar. 6. Hyperglycemia. PLAN: Will continue patient in the hospital, will transfer to the floor as she has been in sinus rhythm for the past 36 hours. Continue Cardizem, breathing treatments, oxygen, antibiotics and will follow. cc: Kd Pena MD
[2018-05-31] MEDS: ROCEPHIN 1 GM in NS 50 ML IV SCH (20:52)
[2018-05-31] MEDS: SEROQUEL PO SCH (20:52)
[2018-05-31] MEDS: HALDOL PO SCH (20:52)
[2018-05-31] MEDS: LIPITOR PO SCH (20:53)
[2018-06-01] MEDS: XOPENEX NEB INH SCH ×4 (03:25→21:49)
[2018-06-01 05:25] LABS: HEMATOCRIT 36.7 % (37.0-47.0); HEMOGLOBIN 11.1 g/dL (12.0-16.0); MCH 26.1 PG (27-31); MCHC 30.2 g/dL (33-37); MCV 86.4 FL (81-99); RBC 4.25 XMIL (4.2-5.4); RDW 16.1 % (11.5-14.5); WBC 6.65 X1000 (4.8-10.8)
[2018-06-01 05:39] LABS: AGAP 9; BUN 27 mg/dL (8-22); CALCIUM 8.5 mg/dL (8.8-10.2); CHLORIDE 105 mmol/L (98-107); COSMO 303; CREATININE 0.6 mg/dL (0.5-0.9); ESTIMATED GFR > 60; GLUCOSE 199 mg/dL (70-104); POTASSIUM 4.1 mmol/L (3.5-5.1); SODIUM 147 mmol/L (136-145); TCO2 33 mmol/L (25-35)
[2018-06-01] MEDS: SOLU-MEDROL IV SCH ×3 (06:05→22:42)
[2018-06-01] MEDS: DOXYCYCLINE PO SCH ×2 (09:37→20:18)
[2018-06-01] MEDS: NICODERM PATCH TD SCH (09:37)
[2018-06-01] MEDS: ATIVAN PO PRN ×2 (09:37→20:18)
[2018-06-01] MEDS: CARDIZEM PO SCH ×4 (09:37→20:55)
[2018-06-01] MEDS ORDERED: ZOFRAN IV PRN (11:27)
--- NOTE | 2018-06-01 11:52 | PROGRESS NOTE ---
DATE: 06/01/2018 SUBJECTIVE: The patient is stills short of breath, tachypneic. I remember her from last admission, though I do think she has got some underlying psychiatric issues because she tends to get very anxious, speak in very short words, but does not seem that much different than she was previously.. I am not clear if she is on home oxygen. She was hypoxic and febrile on admission. Now that is improved but she is still on a lot of oxygen, up to 5 L, which has been that way since the , so she has had a progressive hypoxia. OBJECTIVE: Vital Signs: Blood pressure is 154/85, heart rate 94, respiratory rate 30, temperature 97.9 degrees, 96% on 5 L. Cardiovascular: Regular rate and rhythm. Pulmonary: Bilateral breath sounds. Clear to auscultation. Abdomen: Soft, nontender, nondistended. Bowel sounds were positive. Extremity: No clubbing or cyanosis. Lymphatic exam: No peripheral edema. Neurological: Nonfocal. Pulmonary: Decreased but does have some wheezing. GI: Soft. LABORATORY DATA: White count 6, hemoglobin and hematocrit 11 and 36, platelets 144,000. Sodium 147, BUN is 27. PROBLEM LIST: 1. Pneumonia. We will continue empiric antibiotics. She is on Rocephin and doxycycline. Continue to follow. 2. Atrial fibrillation is stable, I think rate controlled overall. Echo I think showed normal ejection fraction, some diastolic dysfunction though. She does qualify for anticoagulation so I am going to go ahead and start Eliquis. We will monitor. 3. Bipolar disorder. Will continue regular medications and follow closely. 4. Hypoxia is fairly significant. We will continue with pulmonary toilet and follow closely. Repeat chest x-ray tomorrow and monitor. DISPOSITION: Pending her clinical status. cc: Mauricio Hdz MD
[2018-06-01 19:12] LABS: INFLUENZA A NEGATIVE (NEGATIVE); INFLUENZA B NEGATIVE (NEGATIVE)
[2018-06-01] MEDS: ROCEPHIN 1 GM in NS 50 ML IV SCH (20:17)
[2018-06-01] MEDS: HALDOL PO SCH (20:18)
[2018-06-01] MEDS: LIPITOR PO SCH (20:18)
[2018-06-01] MEDS: ELIQUIS PO SCH (20:18)
[2018-06-01] MEDS: SEROQUEL PO SCH (20:18)
[2018-06-02] MEDS: XOPENEX NEB INH SCH ×4 (03:44→22:12)
[2018-06-02] MEDS: SOLU-MEDROL IV SCH ×2 (05:19→15:17)
[2018-06-02] MEDS: CARDIZEM PO SCH ×4 (05:19→20:30)
--- NOTE | 2018-06-02 06:33 | Diag Imaging Result Doc PS360 ---
CHEST-PORTABLE - 06/02/2018 INDICATION: dyspnea COMPARISON: 05/27/2018 FINDINGS: There is little change in the right perihilar infiltrate compatible with pneumonia. There is some increasing linear atelectasis in the right lower lobe. Heart size and pulmonary vascularity are normal. No pneumothorax or pleural effusion. IMPRESSION: Right perihilar infiltrate/pneumonia. Increasing linear atelectasis in the right lower lobe. Electronically signed by Sy Bui 06/02/2018 6:31 AM
[2018-06-02 07:00] LABS: BASO# 0.03 X1000 (0.0-0.2); BASO% 0.3 % (0.0-0.8); HEMATOCRIT 38.4 % (37.0-47.0); HEMOGLOBIN 11.7 g/dL (12.0-16.0); IMM GRAN# 0.85 X1000 (0.0-0.04); IMM GRAN% 9.1 % (0.0-0.5); LYMPH# 0.41 X1000 (1.2-3.4); LYMPH% 4.4 % (20.5-51.1); MCH 26.4 PG (27-31); MCHC 30.5 g/dL (33-37); MCV 86.5 FL (81-99); MONO# 0.21 X1000 (0.11-0.59); MONO% 2.2 % (1.7-9.3); MPV 11.3 FL (7.4-10.4); NEUT# 7.86 X1000 (1.4-6.5); PLT 159 X1000 (130-400); RBC 4.44 XMIL (4.2-5.4); RDW 15.9 % (11.5-14.5); WBC 9.36 X1000 (4.8-10.8)
[2018-06-02 07:04] LABS: BANDS 16 % (0-1); LYMPHS 2 % (21-51); MONO 6 % (1-9); SEGS 74 % (42-75)
[2018-06-02 07:05] LABS: HYPOCHROM OCCASIONAL; POIKILOCYTOSIS 1+; POLYCHROM OCCASIONAL
[2018-06-02 07:06] LABS: OVALOCYTES OCCASIONAL; STOMATOCYTES OCCASIONAL; VACUOLES OCCASIONAL
[2018-06-02 07:07] LABS: AGAP 5; BUN 22 mg/dL (8-22); CALCIUM 8.3 mg/dL (8.8-10.2); CHLORIDE 101 mmol/L (98-107); COSMO 296; CREATININE 0.4 mg/dL (0.5-0.9); ESTIMATED GFR > 60; GLUCOSE 176 mg/dL (70-104); POTASSIUM 4.3 mmol/L (3.5-5.1); SODIUM 145 mmol/L (136-145); TCO2 38 mmol/L (25-35)
[2018-06-02] MEDS: ELIQUIS PO SCH ×2 (09:23→20:28)
[2018-06-02] MEDS: DOXYCYCLINE PO SCH ×2 (09:24→20:28)
[2018-06-02] MEDS: NICODERM PATCH TD SCH (09:24)
--- NOTE | 2018-06-02 14:22 | PROGRESS NOTE ---
DATE: 06/02/2018 SUBJECTIVE: Patient has no focal complaints. OBJECTIVE: Vitals: Blood pressure is 143/63, heart rate of 87, respiratory rate 20, temperature 98.1 degrees, 95% on 5 L, 93% on 4, I think she is kind of hovering there. I do not think that is her baseline O2. Cardiovascular: Regular rate and rhythm. Pulmonary: Bilateral breath sounds. Clear to auscultation. No wheezing today. GI: Soft, nontender, nondistended. Bowel sounds are positive. LABORATORY: White count is 9, hemoglobin and hematocrit 11 and 38, platelets 159,000. Basic was normal. PROBLEM LIST: 1. Pneumonia. She is on Rocephin and doxycycline. Her white count is stable, afebrile. 2. Acute on chronic hypoxic respiratory failure. It persists. I think some of this is just she is not very ambulatory, but her O2 requirement is a bit high right now before we can anticipate discharge. We will work on pulmonary toilet. Maybe try to get her up and see if we can get her O2 requirement down. 3. Chronic obstructive pulmonary disease exacerbation. That does seem to be improved. I am going to wean her steroids and follow her. 4. Atrial fibrillation is now rate controlled. I have started Eliquis. We will continue to monitor. 5. Bipolar disorder appears to be stable on current regimen. DISPOSITION: Pending her clinical status, but once we can get her to 3 or 4 L, I think she probably should be stable for discharge. cc: Mauricio Hdz MD
[2018-06-02] MEDS: HALDOL PO SCH (20:28)
[2018-06-02] MEDS: LIPITOR PO SCH (20:28)
[2018-06-02] MEDS: ROCEPHIN 1 GM in NS 50 ML IV SCH (20:28)
[2018-06-02] MEDS: SEROQUEL PO SCH (20:28)
[2018-06-02] MEDS: MUCOMYST 20% INH SCH (22:13)
[2018-06-03] MEDS: SOLU-MEDROL IV SCH ×4 (01:41→22:10)
[2018-06-03] MEDS: XOPENEX NEB INH SCH ×4 (03:30→21:31)
[2018-06-03] MEDS: CARDIZEM PO SCH ×4 (04:03→20:58)
[2018-06-03 06:35] LABS: BASO# 0.02 X1000 (0.0-0.2); BASO% 0.2 % (0.0-0.8); HEMATOCRIT 37.5 % (37.0-47.0); HEMOGLOBIN 11.5 g/dL (12.0-16.0); IMM GRAN# 0.94 X1000 (0.0-0.04); IMM GRAN% 8.4 % (0.0-0.5); LYMPH# 0.42 X1000 (1.2-3.4); LYMPH% 3.7 % (20.5-51.1); MCH 26.3 PG (27-31); MCHC 30.7 g/dL (33-37); MCV 85.8 FL (81-99); MONO# 0.28 X1000 (0.11-0.59); MONO% 2.5 % (1.7-9.3); MPV 11.7 FL (7.4-10.4); NEUT# 9.55 X1000 (1.4-6.5); NEUT% 85.2 % (42.2-75.2); PLT 162 X1000 (130-400); RBC 4.37 XMIL (4.2-5.4); RDW 15.6 % (11.5-14.5); WBC 11.21 X1000 (4.8-10.8)
[2018-06-03 06:54] LABS: AGAP 6; BUN 22 mg/dL (8-22); CALCIUM 8.2 mg/dL (8.8-10.2); CHLORIDE 101 mmol/L (98-107); COSMO 295; CREATININE 0.4 mg/dL (0.5-0.9); ESTIMATED GFR > 60; GLUCOSE 149 mg/dL (70-104); POTASSIUM 4.2 mmol/L (3.5-5.1); SODIUM 145 mmol/L (136-145); TCO2 39 mmol/L (25-35)
[2018-06-03 07:18] LABS: LYMPHS 5 % (21-51); MONO 6 % (1-9); SEGS 89 % (42-75)
[2018-06-03] MEDS: ELIQUIS PO SCH ×2 (09:17→20:57)
[2018-06-03] MEDS: DOXYCYCLINE PO SCH ×2 (09:18→20:57)
[2018-06-03] MEDS: NICODERM PATCH TD SCH (09:19)
[2018-06-03] MEDS: MUCOMYST 20% INH SCH ×2 (09:32→21:32)
[2018-06-03 10:50] LABS: BILIRUBIN URINE NEGATIVE (NEGATIVE); BLOOD URINE NEGATIVE (NEGATIVE); CLARITY CLEAR (CLEAR); COLOR YELLOW; KETONE URINE NEGATIVE (NEGATIVE); LEUKOCYTES URINE TRACE (NEGATIVE); NITRITE URINE NEGATIVE (NEGATIVE); PROTEIN URINE TRACE mg/dL (NEGATIVE); SP GRAVITY URINE 1.015; UROBILINOGEN URINE NORMAL
[2018-06-03 10:54] LABS: URINE EPITHELIAL CELLS >10 /HPF (<10); URINE WBC <10 /HPF (<10)
--- NOTE | 2018-06-03 11:27 | PROGRESS NOTE ---
DATE: 06/03/2018 SUBJECTIVE: Patient has no major complaints. She requests to go home over and over again. OBJECTIVE: Vital Signs: Blood pressure is 136/55, heart rate of 79, respiratory rate of 20, temperature 98 degrees. Cardiovascular: Regular rate and rhythm. Pulmonary: I do not appreciate rhonchi or rales. Clear to auscultation bilaterally. GI: Soft, nontender, nondistended. Bowel sounds were positive. Laboratory Data: White count is up to 11 today, hemoglobin and hematocrit 11 and 37, platelets 162,000. Rest of her data is unremarkable. Her chest x-ray from yesterday showed a pneumonia. ASSESSMENT AND PLAN: 1. Right parahilar pneumonia. She is on Rocephin and doxycycline. White count has bumped up a little bit but she is on some steroids. 2. Acute on chronic hypoxic respiratory failure. She is at baseline usually on 3 L. She is getting close to being at that level and her breathing has improved. I think probably work on trying to get her home soon, either later today depending on her oxygen requirement, versus tomorrow. 3. Chronic obstructive pulmonary disease exacerbation. Continue nebulizer treatments, steroids, and we will follow. 4. Atrial fibrillation, rate controlled. She is on Eliquis. 5. Bipolar disorder. She is stable on her current regimen. 6. Disposition. Possible discharge today if her oxygen requirement goes down. cc: Mauricio Hdz MD
[2018-06-03 11:30] LABS: URINE SOURCE CLEAN CATCH
[2018-06-03 15:41] LABS: BE 14.2 mmoll (-3.0-3.0); BLOOD TYPE ARTERIAL; HCO3-(ACT) 35.8 mmoll (20.0-26.0); METHB 0.9 % (0.0-1.5); O2(CT) 17.6 mL/dL (15.0-23.0); O2HB 90.4 % (95.0-99.0); PO2(98.6) 57 mmHg (60-100); SAMPLE BLOOD; SAO2 92.8 % (95.0-100.0); THB 13.9 g/dL (11.5-17.4); pH(98.6) 7.48 (7.35-7.45)
[2018-06-03 15:44] LABS: ALLEN TEST YES; MODALITY CANNULA
[2018-06-03 15:47] LABS: PCO2(98.6) 54 mmHg (35-45)
[2018-06-03] MEDS: LIPITOR PO SCH (20:57)
[2018-06-03] MEDS: HALDOL PO SCH (20:57)
[2018-06-03] MEDS: SEROQUEL PO SCH (20:57)
[2018-06-03] MEDS: ROCEPHIN 1 GM in NS 50 ML IV SCH (20:58)
[2018-06-04] MEDS: XOPENEX NEB INH SCH ×2 (04:17→09:37)
[2018-06-04] MEDS: CARDIZEM PO SCH ×3 (05:03→10:14)
[2018-06-04] MEDS: SOLU-MEDROL IV SCH (06:25)
[2018-06-04] MEDS: ELIQUIS PO SCH ×2 (07:58→10:14)
[2018-06-04] MEDS: DOXYCYCLINE PO SCH ×2 (07:59→10:13)
[2018-06-04] MEDS: NICODERM PATCH TD SCH (07:59)
[2018-06-04] MEDS: MUCOMYST 20% INH SCH (09:38)
--- NOTE | 2018-06-04 12:35 | DISCHARGE SUMMARY ---
ADMISSION DATE: 05/27/2018 DISCHARGE DATE: 06/04/2018 PRIMARY CARE PHYSICIAN: Dr. Kenneth Nuñez. ADMISSION DIAGNOSES: 1. Right-sided pneumonia. 2. Hypoxemia. 3. Chronic obstructive pulmonary disease exacerbation. 4. History of cerebrovascular accident. 5. History of bipolar. 6. Chronic tobacco use and abuse. 7. Thrombocytopenia. DISCHARGE DIAGNOSES: 1. Right perihilar pneumonia. 2. Acute on chronic hypoxic respiratory failure, now back at baseline. 3. Acute chronic obstructive pulmonary disease exacerbation. 4. Atrial fibrillation rate controlled on anticoagulation. 5. Bipolar disorder. SUMMARY OF FINDINGS: This is a 73-year-old female who presented to the emergency room with complaints of shortness of breath and cough for about a week. She had intermittent fevers as high as 102 at home. States she had pneumonia 4 to 5 weeks prior and did not feel that she had much improved. She is on 3 L via NC at home continuously. She was seen by her PCP on the day of arrival, and was found to have a room air sat in the 70s. She did not improve after breathing treatments so they called EMS and brought her to the emergency room where she had a room air sat of 83%, and had developed a temperature of 101 degrees. She was admitted, and placed on O2, DuoNeb q.4, steroid taper, and incentive spirometry. We canceled the sputum culture, and we ordered blood cultures x2 that had no growth after 5 days. Her sodium has improved and is back to normal. She has been afebrile for greater than 24 hours. She is saturating 92% to 93 percent on her baseline home O2 at 3 L via nasal cannula. We did do an echocardiogram on 05/29/2018 that was read as an ejection fraction of 65 to 70 percent with diastolic dysfunction. Chest x-ray on 06/02/2018 showed her right perihilar infiltrate pneumonia was stable. We did a chest CT also on 05/30/2018 that showed the pneumonia particularly in the right lower lobe so it is now felt that she can safely be discharged home today. She has home health care. She will continue her home O2 at 3 L via nasal cannula. DISCHARGE MEDICATIONS: 1. Eliquis 5 mg p.o. b.i.d. #60 with 1 refill. 2. Haldol 5 mg p.o. at bedtime. 3. Ativan 1 mg p.o. t.i.d. p.r.n. 4. Nicotine patch 21 mg transdermally daily. 5. Quetiapine fumarate 100 mg p.o. at bedtime. 6. DuoNeb q.4 hours p.r.n. 7. Cefdinir 300 mg p.o. b.i.d. #14 with no refills. 8. Cardizem 120 mg p.o. daily #30 with 1 refill. 9. Nebulizer machine. 10. Prednisone taper as directed. FOLLOWUP: She will need to follow up with her primary care physician in 1 to 2 weeks, and call the office for an appointment. Again, she has home health services with home O2. TIME SPENT: 33 minutes. Dictated by GLADIS Tom for Mauricio Hdz MD cc: GLADIS Tom MD Alan Walker, MD
[2018-06-04 12:38] VITALS: BP 152/50
--- NOTE | 2018-06-04 12:58 | PROGRESS NOTE ---
DATE: 06/04/2018 On day of discharge, she is breathing comfortably. Her vital signs are stable. Saturations are 91 to 92% on 3 L. However, at home, she is on 4 L so we have been trying to get her O2 down to a level below her baseline. In any case, blood pressure is stable. Her lungs sound clear. No new labs today. Right perihilar pneumonia. She is on Rocephin and doxycycline. She seems to be improving from that standpoint. COPD. She is also improving. Anticipate discharge today. Her strep urinary antigen was positive so we will discharge her on Omnicef, and she has been on Rocephin. Prednisone taper and her regular medications. Full dictation per Maira Llaa. This is a [id number] encounter note. 32 minute discharge. cc: Mauricio Hdz MD
== END 2018-06-04 14:57 | disposition home health service (06) | DRG 193 ==
LOC: P.ED 13:07 → P.MEDSURG 13:08 → SUATTDRO 13:08 → P.ICU 05-29 18:53 → P.MEDSURG 05-31 18:37
PROVIDERS: ATTEND Internal Medicine
CPT/HCPCS: 36415; 71010; 71045; 71260; 80048; 80053; 80069; 81001; 81025; 82550; 82805; 83605; 83735; 83880; 84443; 84484; 85025; 85027; 85610; 85730; 87040; 87275; 87276; 87449; 87804; 87899; 93005; 93306; 94640; 94761; 94799; 96365; 96368; 96375; 99285; A9270; J0696; J1650; J2920; J2930; J3475; J7030; J7050; Q9967